=== PATIENT | male | born 1960 | race Caucasian/White ===

== ENCOUNTER 2020-04-24 10:20 | Inpatient (IN) | payer BC, OTHER ==
[~2020-04-24] VITALS: Ht 179.8 cm; Wt 85.1 kg
[2020-04-24] VITALS (7 sets, daily range): BP systolic 143–153; BP diastolic 78–87
--- NOTE | 2020-04-24 13:15 | NUR ---
ALEXANDREA ALVARADO admitted to room 430-1, with an admitting diagnosis of COVID 19, on 04/24/20 from [facility] via EMS, accompanied by EMS STAFF. ALEXANDREA ALVARADO introduced to surroundings, call light, bed controls, phone, TV, temperature control, lights, meal times, smoking policy, visitor policy, side rail policy, bathrooms and showers. Patient Rights given to patient in the handbook. ALEXANDREA ALVARADO verbalizes understanding that [facility] is not responsible for the loss or damage to any personal effects or valuables that are kept in the patients posession during their hospitalization. ALEXANDREA ALVARADO verbalizes understanding of Interdisciplinary Patient Education. Patient and/or family were informed about the Rapid Response Team and its purpose.
--- NOTE | 2020-04-24 13:48 | NUR ---
GREGORY NOTIFIED OF PT ARRIVAL. NO NEW ORDERS AT THIS TIME.
--- NOTE | 2020-04-24 13:49 | NUR ---
CALL TO [facility]. SPOKE TO MITA IN ED. REQUESTED THAT PT FULL CHART BE FAXED ANGEL.
[2020-04-24] MEDS ORDERED: ONDANSETRON 4 MG/2 ML (SDV) Z0FRAN IV PRN (14:15)
[2020-04-24] MEDS ORDERED: NS IV 500 ML 500 ML IV SCH (14:17)
[2020-04-24] MEDS ORDERED: diphenhydrAMINE 50 MG/ML INJ (BENADRYL) IVP PRN (14:30)
[2020-04-24] MEDS ORDERED: REMDESIVIR INJ (NON-FORMULARY) 200 MG in NS (IVPB) 210 ML IV NR (14:30)
--- NOTE | 2020-04-24 14:41 | History & Physical-Hospitalist ---
History of Present Illness HPI/Chief Complaint Pt is a 59yoCM who was admitted due to hypoxia from COVID19. He states his symptoms started about 1 week ago and he was tested for COVID19 at [place] and was called and told he was positive. He has continued to cough and not feel well with increasing shortness of breath prompting him to seek evaluation in the ER. He was found to be hypoxic there and CTA was done and was negative. He was transferred here for further evaluation. He states the cough is his biggest symptom but he is also has lost his taste. Source: patient Exam Limitations: no limitations Date Seen 04/24/20 Time Seen by a Provider: 14:23 Attending Physician Nicholas Cardona MD PCP Referring Physician Date of Admission Apr 24, 2020 at 13:04 Home Medications & Allergies Home Medications Reviewed patient Home Medication Reconciliation performed by pharmacy medication reconciliations chemical waste management technician and/or nursing. Patients Allergies have been reviewed. Allergies Allergies Coded Allergies Penicillins (Verified Allergy, Mild, 04/24/20) Past Eqyhxql-Zidkso-Znytfh Hx Past Med/Social Hx: Reviewed Nursing Past Med/Soc Hx Patient Social History Alcohol Use: Occasionally Uses Alcohol Beverage of Choice: Beer Recreational Drug Use: No Smoking Status: Never a Smoker Physical Abuse Screen: No Sexual Abuse: No Recent Foreign Travel: No Contact w/other who traveled: No Recent Infectious Disease Expo: Yes Family History Reviewed Nursing Family Hx No Pertinent Family Hx Review of Systems Constitutional: No chills, No fever Respiratory: cough, dyspnea on exertion; No hemoptysis, No phlegm; short of breath; No wheezing Cardiovascular: No chest pain, No edema, No palpitations Gastrointestinal: loss of appetite (no taste); No nausea, No vomiting Genitourinary: no symptoms reported Musculoskeletal: no symptoms reported Skin: no symptoms reported Psychiatric/Neurological: No Symptoms Reported Physical Exam Physical Exam Vital Signs Vital Signs - First Documented 04/24/20 13:17 Temp 36.6 Pulse 79 Resp 24 B/P (MAP) 152/87 Pulse Ox 93 O2 Delivery Nasal Cannula O2 Flow Rate 3.00 Capillary Refill : Height, Weight, BMI Height: '" Weight: lbs. oz. kg; 27.34 BMI Method: General Appearance: No Apparent Distress, WD/WN HEENT: PERRL/EOMI, Moist Mucous Membranes; No Scleral Icterus (L), No Scleral Icterus (R) Neck: Normal Inspection, Supple Respiratory: Lungs Clear, No Accessory Muscle Use, Other (coughing multiple times through exam, on oxygen) Cardiovascular: Regular Rate, Rhythm, No JVD, No Murmur Gastrointestinal: Normal Bowel Sounds, Non Tender, Soft Extremity: Normal Capillary Refill, No Calf Tenderness, No Pedal Edema Neurologic/Psychiatric: Alert, Oriented x3, Normal Mood/Affect Skin: Normal Color, Warm/Dry Results Results/Procedures Labs Patient resulted labs reviewed. Assessment/Plan Admission Diagnosis Acute hypoxic respiratory failure Admission Status: Inpatient Order (span 2 midnights) Reason for Inpatient Admission: see below Assessment and Plan Acute hypoxic respiratory failure COVID19 Diagnosed with COVID on 04/19 Symptom onset ~1 week Decadron Oxygen supplementation Discussed risks and benefits of both Remdesivir and Plasma and their EUA status, patient agreeable to experimental treatment, will order Lovenox IS DVT ppx: Lovenox Clinical Quality Measures DVT/VTE Risk/Contraindication: Risk Factor Score Per Nursin RFS Level Per Nursing on Admit: 2=Moderate NICHOLAS CARDONA MD Apr 24, 2020 14:40
[2020-04-24] MEDS ORDERED: ATOR10TA66 PO (15:03)
[2020-04-24] MEDS ORDERED: ALBU18HF2 INH (15:03)
[2020-04-24] MEDS ORDERED: AMLO10TA7 PO (15:03)
[2020-04-24] MEDS ORDERED: ASPI-789 PO (15:03)
--- NOTE | 2020-04-24 15:04 | NUR ---
SPOKE WITH PT (I CALLED HIS ROOM PHONE) AND WENT THRU THE EXT MED HISTORY TO COMPLETE THE MED REC 04-20-2020 AZITHROMYCIN 500MG #3 HOWEVER THE PT HAS COMPLETED THIS THERAPY 04-20-2020 TUSSIONEX #70ML/7 DAY SUPPLY- PT SAID HE IS OUT OF THIS MEDICATION OTC MEDS: JASMEET
[2020-04-24] MEDS: guaiFENesin SYRUP 100 MG/5 ML 10 ML (ROBITUSSIN SF) PO PRN ×2 (15:06→19:44)
[2020-04-24] MEDS: BENZONATATE 100 MG (TESSALON) CAPSULE PO PRN (15:06)
[2020-04-24] MEDS: ENOXAPARIN 40 MG/0.4 ML (LOVENOX) SYR SC SCH (15:06)
[2020-04-24] MEDS: RT-ALBUTEROL INHALER HFA (VENTOLIN HFA) 18 GM IH PRN ×2 (16:19→17:45)
[2020-04-24] MEDS: RT-ALBUTEROL INHALER HFA (VENTOLIN HFA) 18 GM IH SCH ×2 (18:29→22:44)
[2020-04-25 00:51] VITALS: BP 141/71
[2020-04-25] MEDS: IBUPROFEN TABLET 200 MG TAB PO PRN (02:44)
[2020-04-25] MEDS: RT-ALBUTEROL INHALER HFA (VENTOLIN HFA) 18 GM IH SCH ×6 (02:46→22:13)
[2020-04-25 04:30] VITALS: BP 140/78
[2020-04-25 05:05] LABS: ALANINE AMINOTRANSFERASE 48 U/L (0-55); ALBUMIN 3.4 GM/DL (3.2-4.5); ALKALINE PHOSPHATASE 49 U/L (40-136); BILIRUBIN,TOTAL 0.6 MG/DL (0.1-1.0); BUN/CREATININE RATIO 23; CALCIUM 8.3 MG/DL (8.5-10.1); CARBON DIOXIDE 20 MMOL/L (21-32); CHLORIDE 103 MMOL/L (98-107); CREATININE SERUM 0.79 MG/DL (0.60-1.30); GFR ESTIMATED > 60; GLUCOSE 121 MG/DL (70-105); POTASSIUM 3.5 MMOL/L (3.6-5.0); SODIUM 138 MMOL/L (135-145); TOTAL PROTEIN 6.3 GM/DL (6.4-8.2)
[2020-04-25 07:51] VITALS: BP 155/85
[2020-04-25] MEDS: guaiFENesin SYRUP 100 MG/5 ML 10 ML (ROBITUSSIN SF) PO PRN ×3 (09:09→20:16)
[2020-04-25] MEDS: BENZONATATE 100 MG (TESSALON) CAPSULE PO PRN ×2 (09:09→18:17)
[2020-04-25] MEDS: dexAMETHasone 6 MG TAB (DECADRON) PO SCH (09:09)
--- NOTE | 2020-04-25 09:15 | NUR ---
THIS RN AT BEDSIDE AT THIS TIME. PT ASKED TO STAND AT SIDE OF BED SO THIS NURSE COULD STRAIGHTEN LINENS. UPON STANDING PT O2 SATS DROP TO 79% WITHIN SECONDS. THIS RN HELPS PT BACK TO BED. 02 INCREASED FROM 3.05 TO 5L AND IS PLACED IN PT'S MOUTH DUE TO MOUTH BREATHING. STAFF ASSIST REQUESTED FOR A HIGH FLOW NASAL CANULA. PT PLACED ON HF CANULA AND 02 INCREASED TO 8L. PT IS ABLE TO RECOVER TO 90% AFTER 3 MINUTES. GREGORY CALLED @ [phone] GREGORY AT BEDSIDE AT THIS TIME ASSESSING PT.
[2020-04-25] MEDS: LACTATED RINGERS 1,000 ML IV SCH ×2 (09:40→21:20)
[2020-04-25] MEDS: PROMETHAZINE/ CODEINE SYRUP 5 ML UDC PO PRN ×3 (09:40→22:37)
[2020-04-25] MEDS ORDERED: LACTATED RINGERS 1,000 ML IV ONE (09:40)
--- NOTE | 2020-04-25 10:01 | Progress Note - Hospitalist ---
Subjective HPI/CC On Admission Date Seen by Provider: Apr 25, 2020 Time Seen by Provider: 09:55 Pt is a 59yoCM who was admitted due to hypoxia from COVID19. He states his symptoms started about 1 week ago and he was tested for COVID19 at [place] and was called and told he was positive. He has continued to cough and not feel well with increasing shortness of breath prompting him to seek evaluation in the ER. He was found to be hypoxic there and CTA was done and was negative. He was transferred here for further evaluation. He states the cough is his biggest symptom but he is also has lost his taste. Subjective/Events-last exam Pt reports doing ok. Desatted this morning when he got up to go to the bathroom and had a slow recovery. Objective Exam Vital Signs Vital Signs Date Time Temp Pulse Resp B/P (MAP) Pulse Ox O2 Delivery O2 Flow Rate FiO2 04/25/20 07:58 90 Nasal Cannula 3.00 04/25/20 07:51 36.6 84 24 155/85 (108) Capillary Refill : Less Than 3 Seconds General Appearance: No Apparent Distress, WD/WN Respiratory: Decreased Breath Sounds Cardiovascular: Regular Rate, Rhythm, No Murmur Gastrointestinal: Normal Bowel Sounds, Non Tender, Soft Neurologic/Psychiatric: Alert, Oriented x3 Results/Procedures Lab Laboratory Tests 04/25/20 04:24 Patient resulted labs reviewed. Assessment/Plan Assessment and Plan Assess & Plan/Chief Complaint Acute hypoxic respiratory failure COVID19 Diagnosed with COVID on 04/19 Symptom onset ~1 week Decadron Continue Remdesivir Received convalescent plasma last night Lovenox IS Increasing oxygen requirement, Dr Crawford consulted, appreciate recs DVT ppx: Lovenox Clinical Quality Measures DVT/VTE Risk/Contraindication: Risk Factor Score Per Nursin RFS Level Per Nursing on Admit: 2=Moderate NICHOLAS JENKINS MD Apr 25, 2020 10:01
--- NOTE | 2020-04-25 10:28 | Pulmonary Consultation ---
History of Present Illness History of Present Illness Date Seen by Provider: Apr 25, 2020 Time Seen by Provider: 10:25 Date of Admission History of Present Illness 59yo with known dx of COVID 19 admitted secondary to worsening symptoms. Pt tested positive 1 wk ago at [facility]. Upon ED admission he was found to be hypoxic. Pt is admitted to 4th floor. I am consulted secondary to worsening hypoxia and SOB. Allergies and Home Medications Allergies Coded Allergies: Penicillins (Verified Allergy, Mild, 04/24/20) Home Medications Albuterol Sulfate 18 Gm Hfa.aer.ad, 2 INH INH Q6H PRN for SHORTNESS OF BREATH, (Reported) Amlodipine Besylate 10 Mg Tablet, 10 MG PO DAILY, (Reported) Aspirin/Acetaminophen/Caffeine 1 Each Tablet, 2 EACH PO Q6-8HR PRN for Headache, (Reported) Atorvastatin Calcium 10 Mg Tablet, 10 MG PO DAILY, (Reported) Past Hlltxnc-Ihccss-Dfziww Hx Past Med/Social Hx: Reviewed Nursing Past Med/Soc Hx Patient Social History Alcohol Use: Occasionally Uses Alcohol Beverage of Choice: Beer Recreational Drug Use: No Smoking Status: Never a Smoker Recent Foreign Travel: No Contact w/Someone Who Travel: No Recent Infectious Disease Expo: Yes Family Medical History Reviewed Nursing Family Hx No Pertinent Family Hx Sepsis Event Evaluation Height, Weight, BMI Height: '" Weight: lbs. oz. kg; 27.34 BMI Method: Exam Exam Vital Signs Date Time Temp Pulse Resp B/P (MAP) Pulse Ox O2 Delivery O2 Flow Rate FiO2 04/25/20 07:58 90 Nasal Cannula 3.00 04/25/20 07:51 36.6 84 24 155/85 (108) 93 Nasal Cannula 3.00 04/25/20 04:30 36.5 79 28 140/78 (98) 90 Nasal Cannula 3.00 04/25/20 02:46 87 Nasal Cannula 3.00 04/25/20 00:51 36.6 84 22 141/71 (94) 90 Nasal Cannula 3.00 04/24/20 22:44 92 Nasal Cannula 3.00 04/24/20 20:30 Nasal Cannula 3.50 04/24/20 19:35 36.7 81 26 153/79 91 Nasal Cannula 3.00 04/24/20 19:23 36.7 81 26 153/79 (103) 91 Nasal Cannula 3.00 04/24/20 19:01 91 Nasal Cannula 3.00 04/24/20 17:44 36.8 86 24 146/78 91 Nasal Cannula 3.50 04/24/20 17:28 36.7 89 30 143/78 92 Nasal Cannula 3.50 04/24/20 16:18 92 Nasal Cannula 3.00 04/24/20 15:16 36.9 74 30 151/80 (103) 90 Nasal Cannula 3.00 04/24/20 13:55 93 Nasal Cannula 3.00 04/24/20 13:50 36.6 79 24 152/87 (108) 93 Nasal Cannula 3.00 3.00 04/24/20 13:17 36.6 79 24 152/87 93 Nasal Cannula 3.00 I & O 04/25/20 07:00 Intake Total 1974 ml Balance 1974 ml Height & Weight Height: '" Weight: lbs. oz. kg; 27.34 BMI Method: General Appearance: No Apparent Distress, WD/WN HEENT: PERRL/EOMI, Moist Mucous Membranes; No Scleral Icterus (L), No Scleral Icterus (R) Neck: Normal Inspection, Supple Respiratory: Decreased Breath Sounds Cardiovascular: Regular Rate, Rhythm, No Murmur Capillary Refill: Less Than 3 Seconds Extremity: Normal Capillary Refill, No Calf Tenderness, No Pedal Edema Neurologic/Psychiatric: Alert, Oriented x3 Skin: Normal Color, Warm/Dry Results Lab Laboratory Tests 04/25/20 04:24 Assessment/Plan Assessment/Plan COVID19- Dx: 04/19 Decadron Continue Remdesivir S/p convalescent plasma Oxygen check CBC, BNP and PCT CXR reviewed -Awake proning DVT ppx: Markx BELTRAN GÓMEZ DO Apr 25, 2020 10:28
--- NOTE | 2020-04-25 10:33 | Diagnostic Imaging Report ---
INDICATION: Cough and Covid positive. TIME OF EXAM: 9:58 AM. COMPARISON: No prior studies are available for comparison. FINDINGS: The heart size is normal. There are some patchy airspace infiltrates in both mid and lower lung negrete, consistent with pneumonia. The central vascularity is prominent. No effusion or pneumothorax is identified. IMPRESSION: Patchy bilateral airspace pulmonary infiltrates, consistent with pneumonia. The report was faxed to Antony Hankins in Infection Control by alberto@10:32 AM. Dictated by: Dictated on workstation # [id number]
[2020-04-25 11:02] LABS: BASOPHILS % (AUTO) 0 % (0-10); EOSINOPHILS % (AUTO) 0 % (0-10); HEMATOCRIT 44 % (40-54); LYMPHOCYTES # (AUTO) 0.4 10^3/uL (1.0-4.0); LYMPHOCYTES % (AUTO) 3 % (12-44); MEAN CORPUSCULAR HEMOGLOBIN 31 pg (25-34); MEAN CORPUSCULAR HGB CONC 34 g/dL (32-36); MEAN CORPUSCULAR VOLUME 92 fL (80-99); MONOCYTES # (AUTO) 0.5 10^3/uL (0.0-1.0); MONOCYTES % (AUTO) 4 % (0-12); NEUTROPHILS # (AUTO) 10.8 10^3/uL (1.8-7.8); NEUTROPHILS % (AUTO) 92 % (42-75); PLATELET COUNT 230 10^3/uL (130-400); WHITE BLOOD COUNT 11.7 10^3/uL (4.3-11.0)
[2020-04-25 11:19] LABS: BAND NEUTROPHILS 5 %; BASOPHILS % (MANUAL) 0 %; EOSINOPHILS % (MANUAL) 0 %; LYMPHOCYTES % (MANUAL) 4 %; MONOCYTES % (MANUAL) 3 %; NEUTROPHILS % (MANUAL) 88 %; RBC MORPH NORMAL
[2020-04-25 12:00] VITALS: BP 132/73
[2020-04-25] MEDS: REMDESIVIR INJ (NON-FORMULARY) 100 MG in NS (IVPB) 230 ML IV SCH (13:57)
[2020-04-25] MEDS: morphine INJ 4 MG/ML 1 ML (VIAL/SYRINGE) IVP PRN (13:57)
[2020-04-25] MEDS ORDERED: cefTRIAXone FOR IV USE 1,000 MG in WATER (STERILE) FOR INJECTION 10 ML IV SCH (14:00)
[2020-04-25] MEDS: ENOXAPARIN 40 MG/0.4 ML (LOVENOX) SYR SC SCH (14:13)
[2020-04-25 17:00] VITALS: BP 148/76
[2020-04-25] MEDS: cefTRIAXone FOR IV USE 1,000 MG in WATER (STERILE) FOR INJECTION 10 ML IV SCH (18:17)
[2020-04-25] MEDS ORDERED: APAP 300 MG/CODEINE 30 MG (TYLENOL #3) TAB PO PRN (19:15)
[2020-04-25 20:00] VITALS: BP 180/91
--- NOTE | 2020-04-25 20:15 | NUR ---
Entered Pt room to assess and record vital signs. Pt requested to sit up on side of bed. Upon position change Pt began to cough vigorously. PT immediately desat into the 70s and was taking along time to recover. RT in room a few minutes later, RT Norah recommended Pt be placed on vapotherm. Pt room change to 401 for negative pressure to receive vapotherm therapy. RT [place] set Pt up on Vapotherm. Dr. Stevenson notified and agreed with vapotherm therapy, no further orders at this time, will continue to monitor.
[2020-04-25] MEDS: ADVAIR HFA 115/21 MCG INHALER 8 GM IH SCH (20:16)
[2020-04-25] MEDS: ACETAMINOPHEN 325 MG TABLET PO PRN (21:26)
--- NOTE | 2020-04-25 22:30 | NUR ---
Family notified of Pt room change, and that Pt is now receiving O2 therapy via vapotherm. Family verbalized understanding. Patient's status has improved, less coughing and SOB noted, SPO2 98-99% on 35%, 70FIO2 vapotherm settings. Will continue to monitor Pt and collaborate with RT.
[2020-04-26] VITALS (15 sets, daily range): BP systolic 129–150; BP diastolic 72–99
[2020-04-26] MEDS: RT-ALBUTEROL INHALER HFA (VENTOLIN HFA) 18 GM IH SCH ×6 (02:30→20:59)
[2020-04-26 06:02] LABS: HEMOGLOBIN 15.4 g/dL (13.3-17.7); MEAN PLATELET VOLUME 10.7 fL (9.0-12.2); WHITE BLOOD COUNT 14.6 10^3/uL (4.3-11.0)
[2020-04-26 06:07] LABS: ALBUMIN 3.6 GM/DL (3.2-4.5); CHLORIDE 104 MMOL/L (98-107); POTASSIUM 3.8 MMOL/L (3.6-5.0); SODIUM 140 MMOL/L (135-145)
[2020-04-26 06:08] LABS: CALCIUM 8.6 MG/DL (8.5-10.1)
[2020-04-26 06:09] LABS: GLUCOSE 116 MG/DL (70-105); TOTAL PROTEIN 6.7 GM/DL (6.4-8.2)
[2020-04-26 06:10] LABS: CARBON DIOXIDE 22 MMOL/L (21-32)
[2020-04-26 06:11] LABS: BILIRUBIN,TOTAL 0.8 MG/DL (0.1-1.0)
[2020-04-26 06:12] LABS: ALKALINE PHOSPHATASE 66 U/L (40-136)
[2020-04-26 06:13] LABS: CREATININE SERUM 0.82 MG/DL (0.60-1.30); GFR ESTIMATED > 60
[2020-04-26 06:14] LABS: BUN/CREATININE RATIO 22
[2020-04-26 06:16] LABS: ALANINE AMINOTRANSFERASE 50 U/L (0-55)
--- NOTE | 2020-04-26 07:16 | Pulmonary Progress Note ---
Subjective Time Seen by a Provider: 07:15 Subjective/Events-last exam pt is requiring more oxygen. Sepsis Event Evaluation Height, Weight, BMI Height: '" Weight: lbs. oz. kg; 27.34 BMI Method: Exam Exam Vital Signs Date Time Temp Pulse Resp B/P (MAP) Pulse Ox O2 Delivery O2 Flow Rate FiO2 04/26/20 04:00 37.3 78 28 148/77 (100) 96 Vapotherm 35.00 60.00 04/26/20 02:30 98 Vapotherm 4.00 70 04/26/20 00:35 36.9 71 20 140/79 (99) 98 Vapotherm 35.00 70.00 04/25/20 22:17 95 Vapotherm 4.00 70 04/25/20 21:45 95 Vapotherm 4.00 70 04/25/20 21:22 76 Nasal Cannula 3.50 04/25/20 21:00 Nasal Cannula 4.50 04/25/20 20:00 36.1 73 46 180/91 (120) 92 Nasal Cannula 4.50 04/25/20 17:00 35.8 87 24 148/76 (100) 92 Nasal Cannula 3.00 04/25/20 15:23 91 Nasal Cannula 3.50 04/25/20 12:00 35.5 91 22 132/73 (92) 93 Nasal Cannula 3.00 04/25/20 11:45 92 Nasal Cannula 3.50 04/25/20 08:00 Nasal Cannula 3.50 04/25/20 07:58 90 Nasal Cannula 3.00 04/25/20 07:51 36.6 84 24 155/85 (108) 93 Nasal Cannula 3.00 I & O 04/26/20 07:00 Intake Total 1495 ml Output Total 750 ml Balance 745 ml Height & Weight Height: '" Weight: lbs. oz. kg; 27.34 BMI Method: General Appearance: No Apparent Distress, WD/WN HEENT: PERRL/EOMI, Moist Mucous Membranes; No Scleral Icterus (L), No Scleral Icterus (R) Neck: Normal Inspection, Supple Respiratory: Decreased Breath Sounds Cardiovascular: Regular Rate, Rhythm, No Murmur Capillary Refill: Less Than 3 Seconds Extremity: Normal Capillary Refill, No Calf Tenderness, No Pedal Edema Neurologic/Psychiatric: Alert, Oriented x3 Skin: Normal Color, Warm/Dry Results Lab Laboratory Tests 04/25/20 04:24 04/26/20 05:41 Assessment/Plan Assessment/Plan COVID19- Dx: 04/19 Decadron Continue Remdesivir S/p convalescent plasma Oxygen CXR reviewed -Awake proning Pneumonia -Continue Rocephin DVT ppx: Markx BELTRAN GÓMEZ DO Apr 26, 2020 07:16
[2020-04-26] MEDS: ADVAIR HFA 115/21 MCG INHALER 8 GM IH SCH ×2 (07:42→21:00)
[2020-04-26] MEDS: dexAMETHasone 6 MG TAB (DECADRON) PO SCH (09:15)
[2020-04-26] MEDS: guaiFENesin SYRUP 100 MG/5 ML 10 ML (ROBITUSSIN SF) PO PRN ×4 (09:20→23:29)
--- NOTE | 2020-04-26 10:07 | Progress Note - Hospitalist ---
Subjective HPI/CC On Admission Date Seen by Provider: Apr 26, 2020 Time Seen by Provider: 10:04 Pt is a 59yoCM who was admitted due to hypoxia from COVID19. He states his symptoms started about 1 week ago and he was tested for COVID19 at [place] and was called and told he was positive. He has continued to cough and not feel well with increasing shortness of breath prompting him to seek evaluation in the ER. He was found to be hypoxic there and CTA was done and was negative. He was transferred here for further evaluation. He states the cough is his biggest symptom but he is also has lost his taste. Subjective/Events-last exam Pt reports being tired. Was short of breath overnight with coughing spell. Requ ired vapotherm. On day 7 of symptoms. Discussed plan to transfer to ICU for monitoring and potential for worsening given within the window. Objective Exam Vital Signs Vital Signs Date Time Temp Pulse Resp B/P (MAP) Pulse Ox O2 Delivery O2 Flow Rate FiO2 04/26/20 09:24 88 Vapotherm 35.00 60 04/26/20 07:50 36.9 82 24 147/83 (104) Capillary Refill : Less Than 3 Seconds General Appearance: WD/WN, Other (ill appearing) Respiratory: No Accessory Muscle Use, Decreased Breath Sounds; No Wheezing; Other (on vapotherm) Cardiovascular: Regular Rate, Rhythm, No Murmur Gastrointestinal: Normal Bowel Sounds, Soft Neurologic/Psychiatric: Alert, Oriented x3 Results/Procedures Lab Laboratory Tests 04/26/20 05:41 Patient resulted labs reviewed. Assessment/Plan Assessment and Plan Assess & Plan/Chief Complaint Acute hypoxic respiratory failure COVID19 Diagnosed with COVID on 04/19 Transfer to ICU for increasing oxygen requirement and Vapotherm need Discussed with Dr Crawford who will take over rounds tomorrow Decadron Continue Remdesivir Received convalescent plasma Lovenox, increase to treatment dose Had negative CTA at outside ER IS Continue abx to cover for potential secondary bacterial pna DVT ppx: Lovenox as above Diagnosis/Problems Diagnosis/Problems (1) Acute respiratory failure (2) COVID-19 Clinical Quality Measures DVT/VTE Risk/Contraindication: Risk Factor Score Per Nursin RFS Level Per Nursing on Admit: 2=Moderate NICHOLAS JENKINS MD Apr 26, 2020 10:07
--- NOTE | 2020-04-26 10:30 | NUR ---
PT TRANSFERRED TO ICU-2. PT TOLERATED TRANSFER WELL. REPORT GIVEN TO ALBER BARBOSA AT THIS TIME.
[2020-04-26] MEDS: ENOXAPARIN 40 MG/0.4 ML (LOVENOX) SYR SC SCH ×2 (11:01→19:25)
[2020-04-26] MEDS: BENZONATATE 100 MG (TESSALON) CAPSULE PO PRN ×2 (11:01→19:25)
[2020-04-26] MEDS: ACETAMINOPHEN 325 MG TABLET PO PRN (11:02)
[2020-04-26] MEDS ORDERED: FUROSEMIDE 40 MG/4 ML INJ (LASIX) ONE (11:09)
[2020-04-26] MEDS ORDERED: FUROSEMIDE 40 MG/4 ML INJ (LASIX) IVP ONE (11:15)
--- NOTE | 2020-04-26 11:15 | NUR ---
DR GÓMEZ NOTIFIED OF PT'S VAPOTHERM SETTING 40 L /100%, ALSO NOTIFIED OF PT'S AVERAGE SA02 91-92%, PT NOTED TO BECOME MORE HYPOXIC WITH ACTIVITY. NEW ORDERS RECEIVED.
[2020-04-26] MEDS: POTASSIUM CL 10MEQ/50ML IVPB 50 ML IV SCH ×4 (11:20→15:10)
[2020-04-26 11:40] LABS: ABG OXYGEN SATURATION 93 % (94-100); ABG PCO2 34 MMHG (35-45); ABG PH 7.49 (7.37-7.43); ABG PO2 73 MMHG (79-93); ABG TCO2 26.2 MMOL/L (21.0-31.0)
[2020-04-26 11:41] LABS: ALLENS TEST YES-POS; INSPIRED O2 100%; PATIENT TEMP 37.4; VENTILATOR NO
--- NOTE | 2020-04-26 11:52 | Diagnostic Imaging Report ---
CLINICAL INDICATION: COVID-19 positive. Patient with shortness of breath. EXAM: Portable chest x-ray upright view. COMPARISONS: Portable chest x-ray dated 04/25/2020. FINDINGS: Lungs/pleura: There is no significant change to the patchy airspace infiltrates bilaterally (right side more than the left). There is no pneumothorax. There is no pleural effusion. Mediastinum: Unremarkable. Pulmonary vasculature: Unremarkable. Heart: Heart size is upper limits of normal for portable projection.. Bones/extrathoracic soft tissue: Unremarkable. IMPRESSION: Stable bilateral lung infiltrates (right side more than the left). Dictated by: Dictated on workstation # [id number]
[2020-04-26 13:25] LABS: BILIRUBIN,URINE NEGATIVE (NEGATIVE); CLARITY,URINE CLEAR; COLOR,URINE YELLOW; GLUCOSE, URINE (UA) NEGATIVE (NEGATIVE); KETONES,URINE NEGATIVE (NEGATIVE); LEUKOCYTE ESTERASE ,URINE NEGATIVE (NEGATIVE); NITRITE,URINE NEGATIVE (NEGATIVE); PH,URINE 6.5 (5-9); PROTEIN,URINE NEGATIVE (NEGATIVE)
[2020-04-26 13:39] LABS: BACTERIA,URINE TRACE /HPF; RBC,URINE 0-2 /HPF; SQUAMOUS EPITHELIAL CELL,UR 0-2 /HPF
[2020-04-26] MEDS: REMDESIVIR INJ (NON-FORMULARY) 100 MG in NS (IVPB) 230 ML IV SCH (13:53)
[2020-04-26] MEDS: IBUPROFEN TABLET 200 MG TAB PO PRN ×2 (14:06→21:25)
[2020-04-26] MEDS ORDERED: CHLORASEPTIC SPRAY 177 ML LIQUID MC PRN (16:00)
[2020-04-26] MEDS ORDERED: cefTRIAXone 1,000 MG IV (ROCEPHIN) VIAL ONE (16:27)
[2020-04-26] MEDS ORDERED: WATER (STERILE) FOR INJECTION 10 ML ONE (16:27)
[2020-04-26] MEDS: cefTRIAXone FOR IV USE 1,000 MG in WATER (STERILE) FOR INJECTION 10 ML IV SCH (17:01)
[2020-04-26] MEDS: diphenhydrAMINE 25 MG TAB (BENADRYL) PO PRN (21:21)
[2020-04-27] VITALS (31 sets, daily range): BP systolic 122–159; BP diastolic 69–102
[2020-04-27] MEDS: LACTATED RINGERS 1,000 ML IV SCH (00:53)
[2020-04-27] MEDS: RT-ALBUTEROL INHALER HFA (VENTOLIN HFA) 18 GM IH SCH ×6 (02:16→21:35)
[2020-04-27 03:25] LABS: CHLORIDE 100 MMOL/L (98-107); POTASSIUM 4.6 MMOL/L (3.6-5.0); SODIUM 138 MMOL/L (135-145)
[2020-04-27 03:26] LABS: CALCIUM 8.5 MG/DL (8.5-10.1)
[2020-04-27 03:27] LABS: GLUCOSE 122 MG/DL (70-105)
[2020-04-27 03:29] LABS: CARBON DIOXIDE 25 MMOL/L (21-32)
[2020-04-27 03:31] LABS: CREATININE SERUM 0.82 MG/DL (0.60-1.30); GFR ESTIMATED > 60; PHOSPHORUS 3.3 MG/DL (2.3-4.7)
[2020-04-27] MEDS: POTASSIUM CL 10MEQ/50ML IVPB 50 ML IV SCH (03:31)
[2020-04-27 03:32] LABS: BUN/CREATININE RATIO 22
[2020-04-27] MEDS: KCL 20 MEQ TAB (K-DUR) PO SCH (03:32)
[2020-04-27 03:33] LABS: BASOPHILS % (AUTO) 0 % (0-10); EOSINOPHILS % (AUTO) 0 % (0-10); HEMATOCRIT 47 % (40-54); HEMOGLOBIN 15.5 g/dL (13.3-17.7); LYMPHOCYTES # (AUTO) 0.4 10^3/uL (1.0-4.0); LYMPHOCYTES % (AUTO) 3 % (12-44); MEAN CORPUSCULAR HEMOGLOBIN 31 pg (25-34); MEAN CORPUSCULAR HGB CONC 33 g/dL (32-36); MEAN CORPUSCULAR VOLUME 92 fL (80-99); MEAN PLATELET VOLUME 10.8 fL (9.0-12.2); MONOCYTES # (AUTO) 0.3 10^3/uL (0.0-1.0); MONOCYTES % (AUTO) 2 % (0-12); NEUTROPHILS # (AUTO) 14.3 10^3/uL (1.8-7.8); NEUTROPHILS % (AUTO) 95 % (42-75); PLATELET COUNT 233 10^3/uL (130-400); WHITE BLOOD COUNT 15.1 10^3/uL (4.3-11.0)
[2020-04-27] MEDS: MAGNESIUM 1 GM/100 ML IVPB 100 ML IV SCH (03:39)
[2020-04-27] MEDS: BENZONATATE 100 MG (TESSALON) CAPSULE PO PRN (06:03)
[2020-04-27] MEDS: PROMETHAZINE/ CODEINE SYRUP 5 ML UDC PO PRN ×2 (06:18→17:07)
--- NOTE | 2020-04-27 07:18 | Pulmonary Progress Note ---
Subjective Time Seen by a Provider: 07:13 Subjective/Events-last exam PT is requiring 100% vapotherm Sepsis Event Evaluation Height, Weight, BMI Height: '" Weight: lbs. oz. kg; 27.34 BMI Method: Exam Exam Vital Signs Date Time Temp Pulse Resp B/P (MAP) Pulse Ox O2 Delivery O2 Flow Rate FiO2 04/27/20 06:06 Vapotherm 40.00 100.00 04/27/20 06:00 81 35 133/69 (90) 95 Vapotherm 30.00 75.00 04/27/20 05:00 82 30 137/96 (110) 94 Vapotherm 30.00 75.00 04/27/20 04:00 67 26 148/87 (107) 98 Vapotherm 30.00 75.00 04/27/20 03:48 Vapotherm 35.00 75.00 04/27/20 03:39 37.0 04/27/20 03:12 91 Vapotherm 75.00 30 04/27/20 03:00 85 32 148/96 (113) 99 Vapotherm 30.00 75.00 04/27/20 02:25 Vapotherm 30.00 75.00 04/27/20 02:16 94 Vapotherm 35.00 80 04/27/20 02:00 73 27 136/85 (102) 99 Vapotherm 35.00 80.00 04/27/20 01:00 86 23 146/95 (112) 96 Vapotherm 35.00 80.00 04/27/20 01:00 93 04/27/20 00:00 68 22 144/102 (116) 97 Vapotherm 35.00 80.00 04/26/20 23:32 91 Vapotherm 80.00 35 04/26/20 23:30 37.0 04/26/20 23:00 72 16 143/88 (106) 93 Vapotherm 35.00 80.00 04/26/20 22:00 86 17 94 Vapotherm 35.00 80.00 04/26/20 21:10 Vapotherm 35.00 80.00 04/26/20 21:05 94 Vapotherm 35.00 80 04/26/20 21:01 89 Vapotherm 30.00 70 04/26/20 21:00 81 30 145/86 (105) 92 Vapotherm 30.00 100.00 04/26/20 20:00 76 26 145/89 (107) 95 Vapotherm 30.00 100.00 04/26/20 19:35 91 Vapotherm 70.00 30 04/26/20 19:23 37.1 Vapotherm 30.00 70.00 04/26/20 19:00 77 20 146/83 (104) 92 Vapotherm 30.00 100.00 04/26/20 19:00 80 04/26/20 18:00 78 28 137/88 (104) 90 Vapotherm 30.00 100.00 04/26/20 17:13 92 Vapotherm 30.00 70 04/26/20 17:00 80 22 132/99 (110) 95 Vapotherm 30.00 100.00 04/26/20 16:54 88 Vapotherm 100.00 30 04/26/20 16:00 81 23 132/87 (102) 97 Vapotherm 30.00 100.00 04/26/20 15:26 Vapotherm 30.00 100.00 04/26/20 15:00 80 27 129/78 (95) 96 Vapotherm 30.00 100.00 04/26/20 14:23 94 Vapotherm 30.00 100 04/26/20 14:00 74 30 150/86 (107) 92 Vapotherm 40.00 100.00 04/26/20 13:00 86 38 144/72 (96) 95 Vapotherm 40.00 100.00 04/26/20 12:59 89 04/26/20 12:00 84 34 136/99 (111) 96 Vapotherm 40.00 100.00 04/26/20 12:00 88 Vapotherm 100.00 40 04/26/20 11:45 37.2 04/26/20 11:02 37.4 04/26/20 11:00 85 21 144/84 (104) 92 Vapotherm 40.00 100.00 04/26/20 10:50 94 Vapotherm 40.00 100 04/26/20 10:36 84 04/26/20 09:24 88 Vapotherm 35.00 60 04/26/20 07:50 36.9 82 24 147/83 (104) 92 Vapotherm 04/26/20 07:42 92 Vapotherm 35.00 60 I & O 04/27/20 07:00 Intake Total 1040 ml Output Total 2550 ml Balance -1510 ml Height & Weight Height: '" Weight: lbs. oz. kg; 27.34 BMI Method: General Appearance: No Apparent Distress, WD/WN HEENT: PERRL/EOMI, Moist Mucous Membranes; No Scleral Icterus (L), No Scleral Icterus (R) Neck: Normal Inspection, Supple Respiratory: Decreased Breath Sounds Cardiovascular: Regular Rate, Rhythm, No Murmur Capillary Refill: Less Than 3 Seconds Extremity: Normal Capillary Refill, No Calf Tenderness, No Pedal Edema Neurologic/Psychiatric: Alert, Oriented x3 Skin: Normal Color, Warm/Dry Results Lab Laboratory Tests 04/26/20 05:41 04/27/20 03:00 Assessment/Plan Assessment/Plan COVID19- Dx: 04/19 -Transferred to ICU yesterday secondary to increasing oxygen requirements. Decadron-- Change to 20mg IV daily secondary to worsening hypoxia Repeat CXR Continue Remdesivir S/p convalescent plasma Oxygen CXR reviewed -Awake proning -Repeat Ddimer, BNP, and ferritin -Check bilateral LE US r/o DVT and increase Lovenox to theraputic dosing. -Give Lasix 40mg IV x 1 Pneumonia - worsening leukocytosis -Change Rocephin to Vanco and Zosyn -If MRSA swab returns negative will D/C Vanco -Siddiqui cultures are pending DVT ppx: Lovenox BELTRAN GÓMEZ DO Apr 27, 2020 07:18
[2020-04-27] MEDS ORDERED: PHARMACY TO DOSE IV SCH (07:30)
--- NOTE | 2020-04-27 07:43 | NUR ---
PTD VANCOMYCIN LABS: 88.4 KG, SCr 0.82, CrCl 105.2, BMI 27.3 PLAN: VANCOMYCIN LOADING DOSE 20MG/KG x 88.4 = 1768 MG ~ 1750 MG; VANCOMYCIN MAINT DOSE 15 MG/KG x 88.4 = 1326 ~ 1250 MG Q12H. VANCOMYCIN TROUGH DUE 04/28 @ 1900. IF TROUGH IS >20, HOLD DOSE & NOTIFY PHARMACY FOR ADJUSTMENTS.
[2020-04-27] MEDS: dexAMETHasone INJECTION 20 MG in NS (IVPB) 50 ML IV SCH (07:48)
[2020-04-27] MEDS: CEFEPIME INJECTION 1,000 MG in WATER (STERILE) FOR INJECTION 10 ML IV SCH ×4 (07:48→23:33)
[2020-04-27] MEDS: RT-ALBUTEROL INHALER HFA (VENTOLIN HFA) 18 GM IH PRN (07:49)
[2020-04-27] MEDS: ADVAIR HFA 115/21 MCG INHALER 8 GM IH SCH ×2 (07:49→18:44)
[2020-04-27] MEDS: ENOXAPARIN 40 MG/0.4 ML (LOVENOX) SYR SC SCH (07:49)
[2020-04-27] MEDS ORDERED: VANCOMYCIN 1,750 MG/NS 500 ML IVPB IV NR ×2 (08:00)
[2020-04-27] MEDS ORDERED: FUROSEMIDE 40 MG/4 ML INJ (LASIX) ONE (08:14)
--- NOTE | 2020-04-27 08:17 | NUR ---
THIS RN IN ROOM WITH PT. OXYGENATION NOT TRENDING ABOVE 83% VIA VAPOTHERM 40L/100%. THIS RN HAD PROFESSOR OF POULTRY SCIENCE CALL DR. GÓMEZ FOR ORDERS FOR BIPAP, RT NOTIFIED.
[2020-04-27] MEDS ORDERED: FUROSEMIDE 40 MG/4 ML INJ (LASIX) IVP NR (08:30)
[2020-04-27] MEDS ORDERED: ENOXAPARIN 40 MG/0.4 ML (LOVENOX) SYR SC NR (08:43)
[2020-04-27 09:50] LABS: ABG OXYGEN SATURATION 96 % (94-100); ABG PCO2 35 MMHG (35-45); ABG PO2 89 MMHG (79-93); ABG TCO2 28.3 MMOL/L (21.0-31.0)
[2020-04-27 09:53] LABS: ALLENS TEST YES-POS; INSPIRED O2 80%; PATIENT TEMP 36.8; VENTILATOR NO
--- NOTE | 2020-04-27 13:03 | Diagnostic Imaging Report ---
INDICATION: Shortness of breath, Covid positive patient. Bilateral lower extremity venous Doppler study was performed in the routine fashion with color flow Doppler and waveform analysis. FINDINGS: The common femoral veins, superficial femoral veins, popliteal veins and visualized portion of the tibial veins show normal compressibility and venous flow patterns. There is normal augmentation. IMPRESSION: No evidence of deep vein thrombosis in the major veins of both legs. Dictated by: Dictated on workstation # [id number]
[2020-04-27] MEDS: REMDESIVIR INJ (NON-FORMULARY) 100 MG in NS (IVPB) 230 ML IV SCH (14:51)
[2020-04-27] MEDS: ENOXAPARIN 80 MG/0.8 ML (LOVENOX) SYR SC SCH (19:40)
[2020-04-27] MEDS: VANCOMYCIN 1250 MG/NS 250 ML IVPB IV SCH ×2 (19:40)
[2020-04-28] VITALS (28 sets, daily range): BP systolic 113–141; BP diastolic 74–96
--- NOTE | 2020-04-28 00:06 | NUR ---
PT PRONE FROM APPROXIMATELY [phone]. AFTER ASSISTING PT TO BSC AND BACK HE STATES HE WOULD LIKE TO JUST STAY ON HIS BACK AT THIS TIME.
[2020-04-28] MEDS: RT-ALBUTEROL INHALER HFA (VENTOLIN HFA) 18 GM IH SCH ×6 (02:14→22:44)
[2020-04-28] MEDS: POTASSIUM CL 10MEQ/50ML IVPB 50 ML IV SCH (02:43)
[2020-04-28] MEDS: MAGNESIUM 1 GM/100 ML IVPB 100 ML IV SCH (02:43)
[2020-04-28] MEDS: KCL 20 MEQ TAB (K-DUR) PO SCH (02:43)
[2020-04-28 02:55] LABS: ABG BASE EXCESS 3.5 MMOL/L (-2.5-2.5); ABG OXYGEN SATURATION 90 % (94-100); ABG PCO2 38 MMHG (35-45); ABG PH 7.46 (7.37-7.43); ABG PO2 66 MMHG (79-93); ABG TCO2 28.3 MMOL/L (21.0-31.0); ALLENS TEST NEGATIVE; INSPIRED O2 40; PATIENT TEMP 37.1; VENTILATOR NO
[2020-04-28 04:40] LABS: ALBUMIN 3.2 GM/DL (3.2-4.5); CHLORIDE 102 MMOL/L (98-107); POTASSIUM 4.4 MMOL/L (3.6-5.0); SODIUM 138 MMOL/L (135-145)
[2020-04-28 04:41] LABS: CALCIUM 8.3 MG/DL (8.5-10.1)
[2020-04-28 04:42] LABS: GLUCOSE 115 MG/DL (70-105)
[2020-04-28 04:43] LABS: TOTAL PROTEIN 6.2 GM/DL (6.4-8.2)
[2020-04-28 04:44] LABS: BILIRUBIN,TOTAL 0.9 MG/DL (0.1-1.0); CARBON DIOXIDE 23 MMOL/L (21-32)
[2020-04-28 04:46] LABS: ALKALINE PHOSPHATASE 87 U/L (40-136); CREATININE SERUM 0.78 MG/DL (0.60-1.30); GFR ESTIMATED > 60; PHOSPHORUS 3.5 MG/DL (2.3-4.7)
[2020-04-28 04:47] LABS: BASOPHILS % (AUTO) 0 % (0-10); BUN/CREATININE RATIO 28; EOSINOPHILS % (AUTO) 0 % (0-10); HEMATOCRIT 54 % (40-54); HEMOGLOBIN 18.1 g/dL (13.3-17.7); LYMPHOCYTES # (AUTO) 0.3 10^3/uL (1.0-4.0); LYMPHOCYTES % (AUTO) 3 % (12-44); MEAN CORPUSCULAR HEMOGLOBIN 31 pg (25-34); MEAN CORPUSCULAR HGB CONC 34 g/dL (32-36); MEAN CORPUSCULAR VOLUME 92 fL (80-99); MEAN PLATELET VOLUME 11.3 fL (9.0-12.2); MONOCYTES # (AUTO) 0.2 10^3/uL (0.0-1.0); MONOCYTES % (AUTO) 2 % (0-12); NEUTROPHILS # (AUTO) 9.4 10^3/uL (1.8-7.8); NEUTROPHILS % (AUTO) 94 % (42-75); PLATELET COUNT 188 10^3/uL (130-400); WHITE BLOOD COUNT 9.9 10^3/uL (4.3-11.0)
[2020-04-28 04:49] LABS: ALANINE AMINOTRANSFERASE 45 U/L (0-55)
[2020-04-28] MEDS: CEFEPIME INJECTION 1,000 MG in WATER (STERILE) FOR INJECTION 10 ML IV SCH ×4 (05:11→23:16)
[2020-04-28 05:27] LABS: ANISOCYTOSIS SLIGHT; ATYPICAL LYMPHOCYTES 1 %; BAND NEUTROPHILS 4 %; HYPOCHROMASIA SLIGHT; LYMPHOCYTES % (MANUAL) 2 %; MONOCYTES % (MANUAL) 2 %; NEUTROPHILS % (MANUAL) 94 %
--- NOTE | 2020-04-28 05:30 | Pulmonary Progress Note ---
Subjective Time Seen by a Provider: 05:25 Subjective/Events-last exam Continue current treatment. Sepsis Event Evaluation Height, Weight, BMI Height: '" Weight: lbs. oz. kg; 27.34 BMI Method: Exam Exam Vital Signs Date Time Temp Pulse Resp B/P (MAP) Pulse Ox O2 Delivery O2 Flow Rate FiO2 04/28/20 05:00 80 22 137/90 (106) 96 NIV Bilevel 45.00 04/28/20 04:00 75 22 113/79 (90) 95 NIV Bilevel 45.00 04/28/20 03:00 75 24 133/74 (93) 93 NIV Bilevel 45.00 04/28/20 02:14 76 23 96 45.00 04/28/20 02:00 79 32 133/87 (102) 95 NIV Bilevel 45.00 04/28/20 01:35 NIV Bilevel 45.00 04/28/20 01:00 63 04/28/20 01:00 60 13 125/79 (94) 97 NIV Bilevel 50.00 04/28/20 00:56 NIV Bilevel 50.00 04/28/20 00:00 37.0 NIV Bilevel 55.00 04/28/20 00:00 62 30 130/81 (97) 95 NIV Bilevel 55.00 04/27/20 23:59 93 NIV Bilevel 55 04/27/20 23:00 59 24 122/79 (93) 99 NIV Bilevel 55.00 04/27/20 22:00 73 44 135/85 (102) 94 NIV Bilevel 55.00 04/27/20 21:35 71 33 96 60.00 04/27/20 21:00 72 34 133/85 (101) 93 NIV Bilevel 55.00 04/27/20 20:00 74 38 131/92 (105) 94 NIV Bilevel 55.00 04/27/20 20:00 92 NIV Bilevel 55 04/27/20 19:37 37.1 70 34 125/92 (103) 94 NIV Bilevel 55.00 04/27/20 19:00 71 04/27/20 19:00 67 32 125/92 (103) 96 NIV Bilevel 60.00 04/27/20 18:46 64 33 96 60.00 04/27/20 18:44 64 33 96 60.00 04/27/20 18:00 71 27 152/90 (110) 94 NIV Bilevel 60.00 04/27/20 17:30 NIV Bilevel 60.00 04/27/20 17:00 68 23 126/89 (101) NIV Bilevel 60.00 04/27/20 16:00 91 Vapotherm 40.00 100 04/27/20 16:00 64 139/83 (101) 95 NIV Bilevel 60.00 04/27/20 15:26 69 38 95 60.00 04/27/20 15:00 37.4 70 22 129/84 (99) 92 NIV Bilevel 60.00 04/27/20 14:00 67 24 129/88 (102) 96 NIV Bilevel 60.00 04/27/20 13:00 76 35 131/86 (101) 93 NIV Bilevel 60.00 04/27/20 13:00 81 04/27/20 12:00 91 NIV Bilevel 40.00 60 04/27/20 11:51 36.8 69 32 135/92 (106) 93 NIV Bilevel 60.00 04/27/20 11:11 62 45 96 70.00 04/27/20 11:00 76 33 139/84 (102) 98 NIV Bilevel 70.00 04/27/20 10:57 NIV Bilevel 70.00 04/27/20 10:00 77 140/93 (109) 96 NIV Bilevel 80.00 04/27/20 09:00 71 25 143/91 (108) 97 NIV Bilevel 80.00 04/27/20 08:39 NIV Bilevel 80.00 04/27/20 08:30 74 32 97 80.00 04/27/20 08:00 90 159/88 (111) Vapotherm 40.00 100.00 04/27/20 08:00 91 Vapotherm 40.00 100 04/27/20 07:49 83 Vapotherm 40.00 100 04/27/20 07:47 36.8 04/27/20 07:00 71 04/27/20 07:00 67 28 146/96 (113) 99 Vapotherm 40.00 100.00 04/27/20 06:06 Vapotherm 40.00 100.00 04/27/20 06:00 81 35 133/69 (90) 95 Vapotherm 30.00 75.00 I & O 04/28/20 07:00 Intake Total 2699.5 ml Output Total 3200 ml Balance -500.5 ml Height & Weight Height: '" Weight: lbs. oz. kg; 27.34 BMI Method: General Appearance: No Apparent Distress, WD/WN HEENT: PERRL/EOMI, Moist Mucous Membranes; No Scleral Icterus (L), No Scleral Icterus (R) Neck: Normal Inspection, Supple Respiratory: Decreased Breath Sounds Cardiovascular: Regular Rate, Rhythm, No Murmur Capillary Refill: Less Than 3 Seconds Extremity: Normal Capillary Refill, No Calf Tenderness, No Pedal Edema Neurologic/Psychiatric: Alert, Oriented x3 Skin: Normal Color, Warm/Dry Results Lab Laboratory Tests 04/26/20 05:41 04/27/20 03:00 04/28/20 04:05 Assessment/Plan Assessment/Plan COVID19- Dx: 04/19 -Transferred to ICU yesterday secondary to increasing oxygen requirements. Decadron-- 20mg IV daily -Continue BiPAP Continue Remdesivir S/p convalescent plasma Oxygen CXR reviewed -Awake proning -Repeat Ddimer, BNP, and ferritin -Check bilateral LE US r/o DVT and increase Lovenox to theraputic dosing. Pneumonia - worsening leukocytosis - Vanco and cefepime -If MRSA swab returns negative will D/C Vanco -Siddiqui cultures are pending Probable PE -Full dose Lovenox BELTRAN GÓMEZ DO Apr 28, 2020 05:30
[2020-04-28] MEDS: ADVAIR HFA 115/21 MCG INHALER 8 GM IH SCH ×2 (07:40→19:40)
[2020-04-28] MEDS: VANCOMYCIN 1250 MG/NS 250 ML IVPB IV SCH ×4 (08:29→19:51)
[2020-04-28] MEDS: ENOXAPARIN 80 MG/0.8 ML (LOVENOX) SYR SC SCH ×2 (08:29→19:59)
[2020-04-28] MEDS: dexAMETHasone INJECTION 20 MG in NS (IVPB) 50 ML IV SCH (09:14)
[2020-04-28] MEDS: REMDESIVIR INJ (NON-FORMULARY) 100 MG in NS (IVPB) 230 ML IV SCH (13:52)
[2020-04-28] MEDS ORDERED: TROUGH ORDER-PHARMACY XX NR (19:00)
[2020-04-28] MEDS ORDERED: ALPRAZolam 0.25 MG (XANAX) TAB PO ONE (20:45)
[2020-04-28] MEDS ORDERED: ALPRAZolam 0.25 MG (XANAX) TAB ONE (20:46)
--- NOTE | 2020-04-28 23:23 | NUR ---
THIS RN ASSISTED PT TO PRONE POSITION AT THIS TIME. SATTING 100% ON BIPAP 15/8 45%.
[2020-04-29] VITALS (24 sets, daily range): BP systolic 109–152; BP diastolic 70–96
[2020-04-29] MEDS: RT-ALBUTEROL INHALER HFA (VENTOLIN HFA) 18 GM IH SCH ×6 (02:07→23:18)
--- NOTE | 2020-04-29 02:48 | NUR ---
THIS RN ASSISTED PT TO SUPINE POSITION. PT SATURATING 95% ON BIPAP 15/8 AND 45%.
[2020-04-29 03:05] LABS: ABG BASE EXCESS 2.6 MMOL/L (-2.5-2.5); ABG OXYGEN SATURATION 88 % (94-100); ABG PCO2 37 MMHG (35-45); ABG PH 7.46 (7.37-7.43); ABG PO2 61 MMHG (79-93); ABG TCO2 27.4 MMOL/L (21.0-31.0)
[2020-04-29 03:15] LABS: ALLENS TEST POSITIVE; INSPIRED O2 45; PATIENT TEMP 36.2; VENTILATOR NO
--- NOTE | 2020-04-29 04:23 | Pulmonary Progress Note ---
Subjective Time Seen by a Provider: 04:21 Subjective/Events-last exam Pt is still requiring BiPAP Sepsis Event Evaluation Height, Weight, BMI Height: '" Weight: lbs. oz. kg; 27.34 BMI Method: Exam Exam Vital Signs Date Time Temp Pulse Resp B/P (MAP) Pulse Ox O2 Delivery O2 Flow Rate FiO2 04/29/20 04:02 36.3 04/29/20 04:00 96 NIV Bilevel 45 04/29/20 04:00 74 26 129/79 (96) 96 NIV Bilevel 50.00 04/29/20 03:00 71 22 126/81 (96) 94 NIV Bilevel 50.00 04/29/20 02:07 56 29 96 45.00 04/29/20 02:00 66 32 116/70 (85) 96 NIV Bilevel 50.00 04/29/20 01:00 64 25 128/89 (102) 97 NIV Bilevel 50.00 04/29/20 01:00 62 04/29/20 00:00 64 24 126/71 (89) 97 NIV Bilevel 50.00 04/28/20 23:28 36.4 04/28/20 23:18 94 NIV Bilevel 45 04/28/20 23:00 64 23 136/91 (106) 96 NIV Bilevel 50.00 04/28/20 22:41 62 12 94 45.00 04/28/20 22:00 63 25 128/90 (103) 97 NIV Bilevel 50.00 04/28/20 21:00 72 22 132/83 (99) 93 NIV Bilevel 50.00 04/28/20 20:02 36.2 04/28/20 20:00 94 NIV Bilevel 45 04/28/20 20:00 67 21 141/89 (106) 96 NIV Bilevel 50.00 04/28/20 19:40 72 29 96 45.00 04/28/20 19:00 60 04/28/20 19:00 71 33 141/87 (105) 96 NIV Bilevel 50.00 04/28/20 18:00 69 30 133/96 (108) 92 NIV Bilevel 50.00 04/28/20 17:00 140/94 (109) Vapotherm 40.00 100.00 04/28/20 16:59 37.4 04/28/20 16:10 94 NIV Bilevel 45 04/28/20 16:00 75 25 131/90 (104) 94 NIV Bilevel 50.00 04/28/20 15:00 68 20 130/80 (97) 94 NIV Bilevel 50.00 04/28/20 14:52 63 29 93 45.00 04/28/20 14:00 67 30 131/82 (98) 93 NIV Bilevel 50.00 04/28/20 13:00 78 22 115/75 (88) 22 Vapotherm 40.00 100.00 04/28/20 12:24 76 04/28/20 12:03 96 NIV Bilevel 45 04/28/20 12:03 37.1 04/28/20 12:00 72 25 123/92 (102) 96 NIV Bilevel 50.00 04/28/20 11:00 83 25 134/92 (106) 93 NIV Bilevel 50.00 04/28/20 10:49 72 27 91 45.00 04/28/20 10:00 83 25 119/81 (94) 94 NIV Bilevel 50.00 04/28/20 09:00 04/28/20 08:52 82 32 129/92 (104) 91 Vapotherm 40.00 100.00 04/28/20 08:34 92 NIV Bilevel 45 04/28/20 08:31 37.2 04/28/20 07:40 69 33 91 45.00 04/28/20 07:00 67 04/28/20 07:00 68 25 133/83 (100) 92 NIV Bilevel 50.00 04/28/20 06:00 75 31 129/83 (98) 91 NIV Bilevel 45.00 04/28/20 05:00 80 22 137/90 (106) 96 NIV Bilevel 45.00 I & O 04/29/20 07:00 Intake Total 2082.0 ml Output Total 1405 ml Balance 677.0 ml Height & Weight Height: '" Weight: lbs. oz. kg; 27.34 BMI Method: General Appearance: No Apparent Distress, WD/WN HEENT: PERRL/EOMI, Moist Mucous Membranes; No Scleral Icterus (L), No Scleral Icterus (R) Neck: Normal Inspection, Supple Respiratory: Decreased Breath Sounds Cardiovascular: Regular Rate, Rhythm, No Murmur Capillary Refill: Less Than 3 Seconds Extremity: Normal Capillary Refill, No Calf Tenderness, No Pedal Edema Neurologic/Psychiatric: Alert, Oriented x3 Skin: Normal Color, Warm/Dry Results Lab Laboratory Tests 04/28/20 04:05 Assessment/Plan Assessment/Plan COVID19- Dx: 04/19 Decadron-- 20mg IV daily -Labs pending -Continue BiPAP Continue Remdesivir S/p convalescent plasma Oxygen CXR reviewed -Awake proning -Repeat Ddimer, BNP, and ferritin -Check bilateral LE US r/o DVT- are negative Lovenox theraputic dosing. Pneumonia - worsening leukocytosis - Vanco and cefepime -If MRSA swab returns negative will D/C Vanco -Siddiqui cultures are pending Probable PE -Full dose Lovenox BELTRAN GÓMEZ DO Apr 29, 2020 04:23
[2020-04-29 04:46] LABS: ALBUMIN 3.4 GM/DL (3.2-4.5); CHLORIDE 100 MMOL/L (98-107); POTASSIUM 4.7 MMOL/L (3.6-5.0); SODIUM 137 MMOL/L (135-145)
[2020-04-29 04:47] LABS: CALCIUM 8.5 MG/DL (8.5-10.1)
[2020-04-29 04:49] LABS: GLUCOSE 122 MG/DL (70-105); TOTAL PROTEIN 6.4 GM/DL (6.4-8.2)
[2020-04-29 04:50] LABS: CARBON DIOXIDE 26 MMOL/L (21-32)
[2020-04-29 04:51] LABS: BILIRUBIN,TOTAL 0.9 MG/DL (0.1-1.0)
[2020-04-29 04:52] LABS: ALKALINE PHOSPHATASE 87 U/L (40-136); GFR ESTIMATED > 60; PHOSPHORUS 3.8 MG/DL (2.3-4.7)
[2020-04-29 04:53] LABS: BUN/CREATININE RATIO 26
[2020-04-29 04:55] LABS: ALANINE AMINOTRANSFERASE 48 U/L (0-55); MAGNESIUM 2.1 MG/DL (1.6-2.4)
[2020-04-29 04:56] LABS: BASOPHILS % (AUTO) 0 % (0-10); EOSINOPHILS % (AUTO) 0 % (0-10); HEMATOCRIT 47 % (40-54); HEMOGLOBIN 15.7 g/dL (13.3-17.7); LYMPHOCYTES # (AUTO) 0.3 10^3/uL (1.0-4.0); LYMPHOCYTES % (AUTO) 3 % (12-44); MEAN CORPUSCULAR HEMOGLOBIN 31 pg (25-34); MEAN CORPUSCULAR HGB CONC 33 g/dL (32-36); MEAN CORPUSCULAR VOLUME 93 fL (80-99); MEAN PLATELET VOLUME 11.1 fL (9.0-12.2); MONOCYTES # (AUTO) 0.4 10^3/uL (0.0-1.0); MONOCYTES % (AUTO) 4 % (0-12); NEUTROPHILS # (AUTO) 10.2 10^3/uL (1.8-7.8); NEUTROPHILS % (AUTO) 93 % (42-75); PLATELET COUNT 264 10^3/uL (130-400)
[2020-04-29] MEDS: POTASSIUM CL 10MEQ/50ML IVPB 50 ML IV SCH (05:11)
[2020-04-29] MEDS: MAGNESIUM 1 GM/100 ML IVPB 100 ML IV SCH (05:11)
[2020-04-29] MEDS: KCL 20 MEQ TAB (K-DUR) PO SCH (05:11)
[2020-04-29 05:28] LABS: FIBRIN DEGRADATION PRODUCTS 9.6 UG/ML (0.00-0.49); INR 1.1 (0.8-1.4); PROTHROMBIN TIME PATIENT 14.9 SEC (12.2-14.7)
[2020-04-29] MEDS: CEFEPIME INJECTION 1,000 MG in WATER (STERILE) FOR INJECTION 10 ML IV SCH ×3 (06:08→17:10)
[2020-04-29] MEDS: PROMETHAZINE/ CODEINE SYRUP 5 ML UDC PO PRN (06:27)
[2020-04-29] MEDS: ADVAIR HFA 115/21 MCG INHALER 8 GM IH SCH ×2 (06:32→18:28)
[2020-04-29] MEDS: VANCOMYCIN 1250 MG/NS 250 ML IVPB IV SCH ×4 (08:00→16:11)
[2020-04-29] MEDS: ENOXAPARIN 80 MG/0.8 ML (LOVENOX) SYR SC SCH ×2 (09:50→20:31)
[2020-04-29] MEDS: dexAMETHasone INJECTION 20 MG in NS (IVPB) 50 ML IV SCH (09:50)
[2020-04-29] MEDS: ALPRAZolam 0.25 MG (XANAX) TAB PO PRN (20:32)
--- NOTE | 2020-04-29 21:50 | NUR ---
PATIENT ASSISTED TO PRONE POSITION. PATIENT ON VAPOTHERM 40L, 80%, SATTING 95%.
[2020-04-30] VITALS (22 sets, daily range): BP systolic 100–157; BP diastolic 55–103
[2020-04-30] MEDS: CEFEPIME INJECTION 1,000 MG in WATER (STERILE) FOR INJECTION 10 ML IV SCH ×5 (00:17→23:10)
[2020-04-30] MEDS: VANCOMYCIN 1250 MG/NS 250 ML IVPB IV SCH ×8 (00:17→23:10)
[2020-04-30] MEDS: RT-ALBUTEROL INHALER HFA (VENTOLIN HFA) 18 GM IH SCH ×5 (02:00→22:27)
--- NOTE | 2020-04-30 02:00 | NUR ---
PATIENT ASSISTED TO SUPINE POSITION, HIGH CACERES'S. VAPOTHERM 40L, 80% WITH O2 SAT 95%.
[2020-04-30] MEDS: BENZONATATE 100 MG (TESSALON) CAPSULE PO PRN (03:50)
--- NOTE | 2020-04-30 04:04 | Pulmonary Progress Note ---
Subjective Time Seen by a Provider: 04:02 Sepsis Event Evaluation Height, Weight, BMI Height: '" Weight: lbs. oz. kg; 27.34 BMI Method: Exam Exam Vital Signs Date Time Temp Pulse Resp B/P (MAP) Pulse Ox O2 Delivery O2 Flow Rate FiO2 04/30/20 02:13 91 Vapotherm 40.00 80 04/30/20 02:00 57 24 130/70 (90) 96 Vapotherm 40.00 80.00 04/30/20 01:00 67 04/30/20 01:00 67 29 157/83 (107) 100 Vapotherm 40.00 80.00 04/30/20 00:00 61 18 154/89 (110) 100 Vapotherm 40.00 80.00 04/29/20 23:59 98 Vapotherm 40.00 80 04/29/20 23:18 98 Vapotherm 40.00 80 04/29/20 23:00 56 22 152/96 (114) 100 Vapotherm 40.00 80.00 04/29/20 22:00 62 139/77 (97) 92 Vapotherm 40.00 80.00 04/29/20 21:00 61 31 136/90 (105) 98 Vapotherm 40.00 80.00 04/29/20 20:00 95 Vapotherm 40.00 80 04/29/20 20:00 74 34 123/76 (92) 93 Vapotherm 40.00 80.00 04/29/20 20:00 36.9 04/29/20 19:00 71 04/29/20 19:00 71 35 124/78 (93) 95 Vapotherm 40.00 80.00 04/29/20 18:32 40.00 80.00 04/29/20 18:28 97 Vapotherm 40.00 80 04/29/20 18:00 70 33 131/80 (97) 96 Vapotherm 40.00 90.00 04/29/20 17:00 59 30 130/84 (99) 100 Vapotherm 40.00 90.00 04/29/20 16:00 63 28 123/85 (98) 99 Vapotherm 40.00 95.00 04/29/20 15:17 36.5 04/29/20 15:09 94 Vapotherm 40.00 90 9/27/20 15:00 65 35 122/77 (92) 99 Vapotherm 40.00 95.00 04/29/20 14:47 Vapotherm 40.00 95.00 04/29/20 14:36 97 Vapotherm 40.00 95 04/29/20 14:00 67 33 127/76 (93) 96 Vapotherm 40.00 95.00 04/29/20 13:00 74 32 125/74 (91) 96 Vapotherm 40.00 95.00 04/29/20 12:33 79 04/29/20 12:00 78 31 109/70 (83) 94 Vapotherm 40.00 95.00 04/29/20 11:51 36.7 04/29/20 11:51 93 Vapotherm 40.00 95 04/29/20 11:00 73 17 122/77 (92) 100 Vapotherm 40.00 95.00 04/29/20 10:00 77 36 119/73 (88) 95 Vapotherm 40.00 95.00 04/29/20 09:42 94 Vapotherm 40.00 95 04/29/20 09:00 76 24 123/77 (92) 96 Vapotherm 40.00 95.00 04/29/20 08:00 78 30 123/84 (97) 95 Vapotherm 40.00 95.00 04/29/20 07:35 93 Vapotherm 40.00 95 04/29/20 07:34 36.4 04/29/20 07:00 78 22 133/84 (100) 96 Vapotherm 40.00 95.00 04/29/20 07:00 67 04/29/20 06:32 93 Vapotherm 40.00 95 04/29/20 06:27 95 Vapotherm 40.00 95.00 04/29/20 06:15 95 Vapotherm 40.00 100.00 04/29/20 06:00 60 25 120/72 (88) 98 NIV Bilevel 50.00 04/29/20 05:00 61 22 112/75 (87) 99 NIV Bilevel 50.00 I & O 04/30/20 07:00 Intake Total 2783.5 ml Output Total 2000 ml Balance 783.5 ml Height & Weight Height: '" Weight: lbs. oz. kg; 27.34 BMI Method: General Appearance: No Apparent Distress, WD/WN HEENT: PERRL/EOMI, Moist Mucous Membranes; No Scleral Icterus (L), No Scleral Icterus (R) Neck: Normal Inspection, Supple Respiratory: Decreased Breath Sounds Cardiovascular: Regular Rate, Rhythm, No Murmur Capillary Refill: Less Than 3 Seconds Extremity: Normal Capillary Refill, No Calf Tenderness, No Pedal Edema Neurologic/Psychiatric: Alert, Oriented x3 Skin: Normal Color, Warm/Dry Results Lab Laboratory Tests 04/28/20 04:05 04/29/20 04:10 Assessment/Plan Assessment/Plan COVID19- Dx: 04/19 Decadron-- 20mg IV daily -Labs pending -Continue BiPAP Continue Remdesivir S/p convalescent plasma Oxygen CXR reviewed -Awake proning - bilateral LE US r/o DVT- are negative Lovenox theraputic dosing. Pneumonia - worsening leukocytosis - Vanco and cefepime -If MRSA swab returns negative will D/C Vanco -Siddiqui cultures are pending Probable PE -Full dose Lovenox BELTRAN GÓMEZ DO Apr 30, 2020 04:04
[2020-04-30 04:50] LABS: BASOPHILS % (AUTO) 0 % (0-10); EOSINOPHILS % (AUTO) 0 % (0-10); HEMATOCRIT 46 % (40-54); HEMOGLOBIN 15.3 g/dL (13.3-17.7); LYMPHOCYTES # (AUTO) 0.4 10^3/uL (1.0-4.0); LYMPHOCYTES % (AUTO) 3 % (12-44); MEAN CORPUSCULAR HEMOGLOBIN 31 pg (25-34); MEAN CORPUSCULAR HGB CONC 34 g/dL (32-36); MEAN CORPUSCULAR VOLUME 93 fL (80-99); MEAN PLATELET VOLUME 11.7 fL (9.0-12.2); MONOCYTES # (AUTO) 0.5 10^3/uL (0.0-1.0); MONOCYTES % (AUTO) 4 % (0-12); NEUTROPHILS # (AUTO) 13.3 10^3/uL (1.8-7.8); NEUTROPHILS % (AUTO) 92 % (42-75); PLATELET COUNT 270 10^3/uL (130-400); WHITE BLOOD COUNT 14.5 10^3/uL (4.3-11.0)
[2020-04-30 05:09] LABS: BUN/CREATININE RATIO 23; CARBON DIOXIDE 22 MMOL/L (21-32); CHLORIDE 102 MMOL/L (98-107); CREATININE SERUM 0.77 MG/DL (0.60-1.30); GFR ESTIMATED > 60; POTASSIUM 4.6 MMOL/L (3.6-5.0); SODIUM 134 MMOL/L (135-145)
[2020-04-30 05:10] LABS: CALCIUM 7.9 MG/DL (8.5-10.1); GLUCOSE 112 MG/DL (70-105); PHOSPHORUS 3.2 MG/DL (2.3-4.7)
[2020-04-30] MEDS: guaiFENesin SYRUP 100 MG/5 ML 10 ML (ROBITUSSIN SF) PO PRN (05:11)
[2020-04-30] MEDS: POTASSIUM CL 10MEQ/50ML IVPB 50 ML IV SCH (05:12)
[2020-04-30] MEDS: MAGNESIUM 1 GM/100 ML IVPB 100 ML IV SCH (05:12)
[2020-04-30] MEDS: KCL 20 MEQ TAB (K-DUR) PO SCH (05:12)
[2020-04-30] MEDS: PROMETHAZINE/ CODEINE SYRUP 5 ML UDC PO PRN ×3 (05:51→18:38)
[2020-04-30] MEDS ORDERED: TROUGH ORDER-PHARMACY XX NR (07:00)
[2020-04-30] MEDS: ADVAIR HFA 115/21 MCG INHALER 8 GM IH SCH ×2 (07:06→22:27)
--- NOTE | 2020-04-30 07:56 | NUR ---
VANCOMYCIN DOSING TROUGH LEVEL 14.7 - CONTINUE CURRENT DOSE OF VANC 1250 MG Q8H
[2020-04-30] MEDS: ENOXAPARIN 80 MG/0.8 ML (LOVENOX) SYR SC SCH ×2 (08:29→20:06)
[2020-04-30] MEDS: dexAMETHasone INJECTION 20 MG in NS (IVPB) 50 ML IV SCH (08:43)
[2020-04-30] MEDS: BENZONATATE 100 MG (TESSALON) CAPSULE PO SCH ×3 (09:12→20:06)
--- NOTE | 2020-04-30 11:15 | Diagnostic Imaging Report ---
INDICATION: Line placement. Frontal chest obtained at 10:55 a.m. is compared 04/27/2020. FINDINGS: Heart is mildly enlarged. There is mild central vascular congestion. Peripheral infiltrates are present which appears similar to the prior study. There is no pneumothorax or pleural fluid. There is a new right-sided PICC line with tip in the SVC right atrial junction. IMPRESSION: No change in bilateral infiltrates. New right-sided PICC line tip overlies SVC right atrial junction. Dictated by: Dictated on workstation # [id number]
--- NOTE | 2020-04-30 11:47 | NUR ---
THIS RN SPOKE WITH RADIOLOGIST TO CONFIRM PICC PLACEMENT. PICC IN CORRECT POSITION. Alycia KIM RN NOTIFIED PICC OK TO USE.
--- NOTE | 2020-04-30 14:20 | NUR ---
"RD ASSESSMENT PMHx: no significant PMH PT INTERACTION: Note pt is COVID-19, per chart review. Note all information for nutrition assessment for LOS is per chart review. Note avg PO intake 65% x4d. Note last BM was 04/27, and pt not currently on bowel regimen. Note unable to determine recent wt hx. ABNORMAL NUTRITION-RELATED LAB VALUES LOW: Na 134; Ca 7.9 HIGH: glu 112 Est. kcal needs: 1750 kcal | 20 kcal/kg Est. Pro needs: 71 g Pro | 0.8 g Pro/kg PES STATEMENT: Inadequate oral intake (NI-2.1) related to loss of appetite as evidenced by chart review | avg PO intake 65% x4d INTERVENTION: Continue with current diet order of Regular diet. Pt may benefit from nutrition supplementation if PO intake declines. Will continue to follow and reassess as pt needs, intake, and status change. Louann De Souza, MS, RD, LD"
--- NOTE | 2020-04-30 18:46 | NUR ---
PT ASSISTED BACK TO BED, CALL LIGHT AND OTHER PERSONAL ITEMS WITHIN REACH. PT HAS BEEN UP IN CHAIR FOR APPROXIMATELY 4 HOURS THIS AFTERNOON, PT TOLERATED WELL, NO NOTED OF INCREASED NEED FOR OXYGEN WHEN TRANSFERRING, NO NEEDS NOTED AT THIS TIME WILL CONTINUE TO MONITOR.
[2020-05-01] VITALS (28 sets, daily range): BP systolic 112–145; BP diastolic 55–101
[2020-05-01 01:40] LABS: BASOPHILS % (AUTO) 0 % (0-10); EOSINOPHILS % (AUTO) 0 % (0-10); HEMATOCRIT 44 % (40-54); HEMOGLOBIN 14.8 g/dL (13.3-17.7); LYMPHOCYTES # (AUTO) 0.4 10^3/uL (1.0-4.0); LYMPHOCYTES % (AUTO) 3 % (12-44); MEAN CORPUSCULAR HEMOGLOBIN 31 pg (25-34); MEAN CORPUSCULAR HGB CONC 34 g/dL (32-36); MEAN CORPUSCULAR VOLUME 92 fL (80-99); MONOCYTES # (AUTO) 0.5 10^3/uL (0.0-1.0); MONOCYTES % (AUTO) 4 % (0-12); NEUTROPHILS # (AUTO) 12.1 10^3/uL (1.8-7.8); NEUTROPHILS % (AUTO) 91 % (42-75); PLATELET COUNT 279 10^3/uL (130-400); WHITE BLOOD COUNT 13.2 10^3/uL (4.3-11.0)
[2020-05-01 01:50] LABS: CHLORIDE 103 MMOL/L (98-107)
[2020-05-01 01:51] LABS: POTASSIUM 4.6 MMOL/L (3.6-5.0); SODIUM 134 MMOL/L (135-145)
[2020-05-01 01:52] LABS: CALCIUM 7.8 MG/DL (8.5-10.1); GLUCOSE 131 MG/DL (70-105)
[2020-05-01 01:54] LABS: CARBON DIOXIDE 23 MMOL/L (21-32)
[2020-05-01 01:56] LABS: CREATININE SERUM 0.72 MG/DL (0.60-1.30); GFR ESTIMATED > 60; PHOSPHORUS 3.4 MG/DL (2.3-4.7)
[2020-05-01 01:57] LABS: BUN/CREATININE RATIO 24
[2020-05-01] MEDS: MAGNESIUM 1 GM/100 ML IVPB 100 ML IV SCH (02:00)
[2020-05-01] MEDS: POTASSIUM CL 10MEQ/50ML IVPB 50 ML IV SCH (02:00)
[2020-05-01] MEDS: KCL 20 MEQ TAB (K-DUR) PO SCH (02:00)
[2020-05-01] MEDS: RT-ALBUTEROL INHALER HFA (VENTOLIN HFA) 18 GM IH SCH ×6 (02:04→23:29)
[2020-05-01 02:36] LABS: ABG BASE EXCESS 4.5 MMOL/L (-2.5-2.5); ABG OXYGEN SATURATION 60 % (94-100); ABG PCO2 47 MMHG (35-45); ABG PH 7.41 (7.37-7.43); ABG TCO2 30.5 MMOL/L (21.0-31.0)
[2020-05-01 02:46] LABS: ABG PO2 38 MMHG (79-93); ALLENS TEST POSITIVE
[2020-05-01 02:47] LABS: INSPIRED O2 80% BIPAPA; PATIENT TEMP 36.6; VENTILATOR NO
[2020-05-01] MEDS ORDERED: FUROSEMIDE 40 MG/4 ML INJ (LASIX) IVP ONE (04:45)
--- NOTE | 2020-05-01 04:48 | Pulmonary Progress Note ---
Subjective Time Seen by a Provider: 04:43 Subjective/Events-last exam Pt is still requiring BIpap and high amounts of oxygen. Sepsis Event Evaluation Height, Weight, BMI Height: '" Weight: lbs. oz. kg; 27.34 BMI Method: Exam Exam Vital Signs Date Time Temp Pulse Resp B/P (MAP) Pulse Ox O2 Delivery O2 Flow Rate FiO2 05/01/20 03:13 54 27 92 NIV Bilevel 80.00 05/01/20 03:01 36.6 05/01/20 03:00 74 18 134/90 (105) NIV Bilevel 60.00 05/01/20 03:00 92 NIV Bilevel 80 05/01/20 02:05 55 23 94 80.00 05/01/20 02:00 52 21 135/88 (104) 92 NIV Bilevel 60.00 05/01/20 01:00 64 05/01/20 01:00 64 20 134/82 (99) 90 NIV Bilevel 80.00 05/01/20 00:00 63 141/93 (109) 93 NIV Bilevel 80.00 04/30/20 23:33 36.6 NIV Bilevel 80.00 04/30/20 23:14 92 NIV Bilevel 90 04/30/20 23:00 67 137/84 (101) 89 Vapotherm 40.00 100.00 04/30/20 22:28 95 Vapotherm 40.00 100 04/30/20 22:00 57 27 143/86 (105) 96 Vapotherm 40.00 100.00 04/30/20 21:00 64 27 137/103 (114) 90 Vapotherm 40.00 100.00 04/30/20 20:05 36.6 04/30/20 20:00 99 Vapotherm 40.00 100 04/30/20 20:00 61 144/85 (104) 97 Vapotherm 40.00 100.00 04/30/20 19:00 60 13 131/84 (100) 94 Vapotherm 40.00 100.00 04/30/20 19:00 60 04/30/20 18:00 65 38 130/76 (94) 96 Vapotherm 40.00 100.00 04/30/20 17:00 63 27 139/81 (100) 97 Vapotherm 40.00 100.00 04/30/20 16:53 94 Vapotherm 40.00 100 04/30/20 16:49 35.8 04/30/20 16:00 58 29 100 Vapotherm 40.00 100.00 04/30/20 15:00 78 26 93 Vapotherm 40.00 100.00 04/30/20 14:29 94 Vapotherm 40.00 100 04/30/20 14:00 69 25 122/76 (91) 96 Vapotherm 40.00 100.00 04/30/20 13:00 62 32 124/79 (94) 93 Vapotherm 40.00 100.00 04/30/20 12:48 71 04/30/20 12:35 94 Vapotherm 40.00 100 04/30/20 12:00 65 26 133/82 (99) 97 Vapotherm 40.00 100.00 04/30/20 11:05 95 Vapotherm 40.00 100 04/30/20 11:00 73 17 122/77 (92) 100 Vapotherm 40.00 100.00 04/30/20 10:00 77 36 119/73 (88) 95 Vapotherm 40.00 100.00 04/30/20 09:00 80 37 118/68 (85) 94 Vapotherm 40.00 100.00 04/30/20 08:52 94 Vapotherm 40.00 100 04/30/20 08:30 94 Vapotherm 40.00 100.00 04/30/20 08:00 35.4 04/30/20 08:00 58 25 127/80 (96) 92 NIV Bilevel 60.00 04/30/20 07:00 63 31 124/79 (94) 97 NIV Bilevel 60.00 04/30/20 06:56 61 29 96 60.00 04/30/20 06:39 65 04/30/20 06:00 56 29 127/80 (96) 98 NIV Bilevel 60.00 04/30/20 05:12 62 21 97 NIV Bilevel 60.00 04/30/20 05:00 69 33 120/55 (76) 96 Vapotherm 40.00 100.00 I & O 05/01/20 07:00 Intake Total 1240 ml Output Total 3550 ml Balance -2310 ml Height & Weight Height: '" Weight: lbs. oz. kg; 27.34 BMI Method: General Appearance: No Apparent Distress, WD/WN HEENT: PERRL/EOMI, Moist Mucous Membranes; No Scleral Icterus (L), No Scleral Icterus (R) Neck: Normal Inspection, Supple Respiratory: Decreased Breath Sounds Cardiovascular: Regular Rate, Rhythm, No Murmur Capillary Refill: Less Than 3 Seconds Extremity: Normal Capillary Refill, No Calf Tenderness, No Pedal Edema Neurologic/Psychiatric: Alert, Oriented x3 Skin: Normal Color, Warm/Dry Results Lab Laboratory Tests 04/30/20 04:15 05/01/20 01:27 Assessment/Plan Assessment/Plan COVID19- Dx: 04/19 Decadron-- 20mg IV daily -Lasix x 1 40mg - BiPAP Remdesivir S/p convalescent plasma Oxygen CXR reviewed -Awake proning - bilateral LE US r/o DVT- are negative Lovenox theraputic dosing. Pneumonia - worsening leukocytosis - Vanco and cefepime -If MRSA swab returns negative will D/C Vanco -Siddiqui cultures are pending Probable PE -Full dose Lovenox BELTRAN GÓMEZ DO May 01, 2020 04:48
[2020-05-01] MEDS ORDERED: FUROSEMIDE 40 MG/4 ML INJ (LASIX) ONE (04:49)
[2020-05-01] MEDS: CEFEPIME INJECTION 1,000 MG in WATER (STERILE) FOR INJECTION 10 ML IV SCH ×4 (05:53→23:24)
[2020-05-01] MEDS: ADVAIR HFA 115/21 MCG INHALER 8 GM IH SCH ×2 (07:38→20:11)
[2020-05-01] MEDS: VANCOMYCIN 1250 MG/NS 250 ML IVPB IV SCH ×6 (08:52→23:24)
[2020-05-01] MEDS: dexAMETHasone INJECTION 20 MG in NS (IVPB) 50 ML IV SCH (08:52)
[2020-05-01] MEDS: ENOXAPARIN 80 MG/0.8 ML (LOVENOX) SYR SC SCH ×2 (08:53→19:24)
[2020-05-01] MEDS: PANTOPRAZOLE 40 MG (PROTONIX) VIAL IV SCH (08:53)
[2020-05-01] MEDS: BENZONATATE 100 MG (TESSALON) CAPSULE PO SCH ×3 (08:53→19:25)
[2020-05-01] MEDS: PROMETHAZINE/ CODEINE SYRUP 5 ML UDC PO PRN ×2 (09:18→19:25)
--- NOTE | 2020-05-01 09:26 | NUR ---
PT ASSESSMENT COMPLETE SEE FLOW SHEET, PT PLACED BACK ON BIPAP BY THIS RN WITH PREVIOUS SETTING, PT SA02 NOTED TO BE 89-90% WITH BIPAP, THIS RN NOTIFIED RT, PT VOICES NO C/O OF PAIN, COUGH MEDICINE GIVEN PRIOR TO PLACING PT BACK ON BIPAP. THIS RN REMAINS IN ROOM AT THIS TIME WILL CONTINUE TO MONITOR
[2020-05-01] MEDS: morphine INJ 4 MG/ML 1 ML (VIAL/SYRINGE) IVP PRN (09:43)
[2020-05-01] MEDS ORDERED: NS IV 1000 ML 1,000 ML ONE (09:44)
--- NOTE | 2020-05-01 09:46 | NUR ---
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 1MG MORPHINE GIVEN. Addendum: 05/01/20 at 1021 by FAMILIA KIM RN VERBAL CONSENT OBTAINED FOR ART LINE PLACEMENT WITNESSED BY THIS RN AND Chacho PETERS RN.
[2020-05-01] MEDS ORDERED: LIDOCAINE 1% INJ 20 ML 20 ML VIAL ONE (10:20)
--- NOTE | 2020-05-01 10:57 | Anesthesia-Procedure Note ---
Procedures/Interventions Procedure Start/Stop/Diagnosis Date of Procedure: May 01, 2020 Start Time: 10:10 Referring Physician: Dr. Crawford Preprocedural Diagnosis: COVID + Brief History Called to ICU 2 for an arterial line placement. Pt in on BiPAP and requiring frequent ABG's. Flash obtained after needle redirect times one. Catheter threaded easily and good waveform obtained after being secured with a tegaderm. Pt tolerated the procedure well. We will be available if needed. Stop Time: 10:40 Postprocedural Diagnosis: same Arterial Line Arterial Line Catheter: 20G Type: Radial Location: Left Procedure: prepped, draped in sterile fashion, 1% lidocaine used to numb region, good wave-form was obtained, patient tolerated procedure well, no imm ediate complications, post procedure area cleaned, post procedure dressing applied SHIRA CADET DO May 01, 2020 10:57
[2020-05-01 11:03] LABS: ABG BASE EXCESS -15.9 MMOL/L (-2.5-2.5); ABG OXYGEN SATURATION 99 % (94-100); ABG PH 7.44 (7.37-7.43); ABG PO2 110 MMHG (79-93); ABG TCO2 8.6 MMOL/L (21.0-31.0)
[2020-05-01 11:05] LABS: ABG PCO2 12 MMHG (35-45)
[2020-05-01 11:06] LABS: ALLENS TEST YES-POS; INSPIRED O2 80%; VENTILATOR NO
--- NOTE | 2020-05-01 11:14 | NUR ---
DR GÓMEZ NOTIFIED OF ABG RESULTS NO NEW ORDERS RECEIVED, ART LINE PLACEMENT COMPLETED BY ANESTHESIA INTO LEFT RADIAL. PT TOLERATED WELL. PT SITTING UP IN BED RT IN ROOM WITH PT AT THIS TIME AND SA02 NOTED 92-94% PT REMAINS TACHYPNEIC, CALL LIGHT AND OTHER PERSONAL ITEMS WITHIN REACH WILL CONTINUE TO MONITOR.
--- NOTE | 2020-05-01 11:55 | NUR ---
DR GÓMEZ CALLED NEW TELEPHONE ORDERS RECEIVED TO GIVE PT ANOTHER UNIT OF CONVALESCENT PLASMA. ORDERS ENTERED.
[2020-05-01] MEDS: ALPRAZolam 0.25 MG (XANAX) TAB PO PRN ×2 (13:12→22:05)
[2020-05-02] VITALS (28 sets, daily range): BP systolic 89–143; BP diastolic 53–90
[2020-05-02 01:16] LABS: ABG BASE EXCESS 2.1 MMOL/L (-2.5-2.5); ABG OXYGEN SATURATION 93 % (94-100); ABG PCO2 39 MMHG (35-45); ABG PH 7.44 (7.37-7.43); ABG PO2 67 MMHG (79-93); ABG TCO2 27.2 MMOL/L (21.0-31.0)
[2020-05-02 01:18] LABS: ALLENS TEST POSITIVE; BASOPHILS % (AUTO) 0 % (0-10); EOSINOPHILS % (AUTO) 0 % (0-10); HEMATOCRIT 40 % (40-54); HEMOGLOBIN 13.5 g/dL (13.3-17.7); INSPIRED O2 70% BIPAP; LYMPHOCYTES # (AUTO) 0.3 10^3/uL (1.0-4.0); LYMPHOCYTES % (AUTO) 3 % (12-44); MEAN CORPUSCULAR HEMOGLOBIN 31 pg (25-34); MEAN CORPUSCULAR HGB CONC 34 g/dL (32-36); MEAN CORPUSCULAR VOLUME 92 fL (80-99); MONOCYTES # (AUTO) 0.3 10^3/uL (0.0-1.0); MONOCYTES % (AUTO) 3 % (0-12); NEUTROPHILS # (AUTO) 11.5 10^3/uL (1.8-7.8); NEUTROPHILS % (AUTO) 93 % (42-75); PATIENT TEMP 36.4; PLATELET COUNT 266 10^3/uL (130-400); VENTILATOR NO; WHITE BLOOD COUNT 12.4 10^3/uL (4.3-11.0)
[2020-05-02 01:23] LABS: CHLORIDE 106 MMOL/L (98-107); POTASSIUM 4.2 MMOL/L (3.6-5.0); SODIUM 136 MMOL/L (135-145)
[2020-05-02 01:24] LABS: CALCIUM 7.6 MG/DL (8.5-10.1)
[2020-05-02 01:25] LABS: GLUCOSE 201 MG/DL (70-105)
[2020-05-02 01:27] LABS: CARBON DIOXIDE 22 MMOL/L (21-32)
[2020-05-02 01:29] LABS: CREATININE SERUM 0.76 MG/DL (0.60-1.30); GFR ESTIMATED > 60; PHOSPHORUS 2.8 MG/DL (2.3-4.7)
[2020-05-02 01:30] LABS: BUN/CREATININE RATIO 29
[2020-05-02 01:31] LABS: MAGNESIUM 2.1 MG/DL (1.6-2.4)
[2020-05-02] MEDS: MAGNESIUM 1 GM/100 ML IVPB 100 ML IV SCH (01:33)
[2020-05-02] MEDS: POTASSIUM CL 10MEQ/50ML IVPB 50 ML IV SCH (01:33)
[2020-05-02] MEDS: KCL 20 MEQ TAB (K-DUR) PO SCH (01:34)
[2020-05-02] MEDS: RT-ALBUTEROL INHALER HFA (VENTOLIN HFA) 18 GM IH SCH ×6 (02:29→21:45)
--- NOTE | 2020-05-02 05:27 | Pulmonary Progress Note ---
Subjective Time Seen by a Provider: 05:24 Sepsis Event Evaluation Height, Weight, BMI Height: '" Weight: lbs. oz. kg; 27.34 BMI Method: Exam Exam Vital Signs Date Time Temp Pulse Resp B/P (MAP) Pulse Ox O2 Delivery O2 Flow Rate FiO2 05/02/20 03:12 36.6 05/02/20 03:11 96 NIV Bilevel 70 05/02/20 02:29 59 20 95 70.00 05/02/20 02:00 64 24 124/61 (82) 93 NIV Bilevel 70.00 05/02/20 01:01 71 24 118/63 (81) 96 NIV Bilevel 70.00 05/02/20 01:00 73 05/02/20 00:00 67 17 122/59 (80) 97 NIV Bilevel 70.00 05/01/20 23:33 96 NIV Bilevel 70 05/01/20 23:33 36.4 NIV Bilevel 70.00 05/01/20 23:29 79 20 98 70.00 05/01/20 23:00 68 20 125/58 (80) 97 NIV Bilevel 80.00 05/01/20 22:11 NIV Bilevel 80.00 05/01/20 22:00 61 26 140/66 (90) 96 NIV Bilevel 90.00 05/01/20 21:00 61 26 140/66 (90) 96 NIV Bilevel 90.00 05/01/20 21:00 68 13 134/63 (86) 98 NIV Bilevel 90.00 05/01/20 20:24 80 11 119/55 (76) 96 NIV Bilevel 90.00 05/01/20 20:17 69 33 98 100.00 05/01/20 20:11 97 Vapotherm 40.00 100 05/01/20 20:00 67 128/59 (82) 96 Vapotherm 40.00 100.00 05/01/20 19:32 96 Vapotherm 40.00 100 05/01/20 19:24 36.4 Vapotherm 40.00 100.00 05/01/20 19:00 71 18 129/65 (86) 95 Vapotherm 40.00 100.00 05/01/20 19:00 71 05/01/20 18:00 78 28 126/62 (83) 98 Vapotherm 40.00 100.00 05/01/20 17:00 75 18 136/74 (94) 94 Vapotherm 40.00 100.00 05/01/20 16:55 99 Vapotherm 40.00 100 05/01/20 16:54 36.4 05/01/20 16:00 55 19 123/64 (83) 96 Vapotherm 40.00 100.00 05/01/20 15:13 66 29 95 100.00 05/01/20 15:00 63 22 123/63 (83) 94 Vapotherm 40.00 100.00 05/01/20 14:00 64 112/62 (79) 98 Vapotherm 40.00 100.00 05/01/20 13:00 65 118/60 (79) 98 Vapotherm 40.00 100.00 05/01/20 12:55 99 NIV Bilevel 40.00 100 05/01/20 12:55 37.2 05/01/20 12:50 62 05/01/20 12:00 64 9 131/66 (87) 95 Vapotherm 40.00 100.00 05/01/20 11:12 70 32 92 100.00 05/01/20 11:00 87 140/69 (92) 91 Vapotherm 40.00 100.00 05/01/20 10:00 72 27 134/86 (102) 94 Vapotherm 40.00 100.00 05/01/20 09:00 80 17 122/86 (98) 93 Vapotherm 40.00 100.00 05/01/20 08:45 92 Vapotherm 40.00 100 05/01/20 08:30 36.0 05/01/20 08:00 83 47 121/87 (98) 87 Vapotherm 40.00 100.00 05/01/20 07:41 88 Vapotherm 40.00 100 05/01/20 07:38 61 30 94 80.00 05/01/20 07:24 Vapotherm 40.00 100.00 05/01/20 07:00 78 05/01/20 07:00 59 31 133/101 (112) 92 NIV Bilevel 80.00 05/01/20 06:36 58 05/01/20 06:00 59 23 145/98 (114) 95 NIV Bilevel 80.00 I & O 05/02/20 07:00 Intake Total 420 ml Output Total 2850 ml Balance -2430 ml Height & Weight Height: '" Weight: lbs. oz. kg; 27.34 BMI Method: General Appearance: No Apparent Distress, WD/WN HEENT: PERRL/EOMI, Moist Mucous Membranes; No Scleral Icterus (L), No Scleral Icterus (R) Neck: Normal Inspection, Supple Respiratory: Decreased Breath Sounds Cardiovascular: Regular Rate, Rhythm, No Murmur Capillary Refill: Less Than 3 Seconds Extremity: Normal Capillary Refill, No Calf Tenderness, No Pedal Edema Neurologic/Psychiatric: Alert, Oriented x3 Skin: Normal Color, Warm/Dry Results Lab Laboratory Tests 05/01/20 01:27 05/02/20 00:56 Assessment/Plan Assessment/Plan COVID19- Dx: 04/19 Decadron-- 20mg IV daily -Lasix x 1 40mg - BiPAP Remdesivir S/p convalescent plasma-- repeat Convalescent plasma Oxygen CXR reviewed -Awake proning - bilateral LE US r/o DVT- are negative Lovenox theraputic dosing. Pneumonia - worsening leukocytosis - Vanco and cefepime -If MRSA swab returns negative will D/C Vanco -Siddiqui cultures are pending Probable PE -Full dose Lovenox BELTRAN GÓMEZ DO May 02, 2020 05:27
[2020-05-02] MEDS ORDERED: FUROSEMIDE 40 MG/4 ML INJ (LASIX) IVP ONE (05:30)
[2020-05-02] MEDS: CEFEPIME INJECTION 1,000 MG in WATER (STERILE) FOR INJECTION 10 ML IV SCH ×3 (06:03→17:13)
[2020-05-02] MEDS: ADVAIR HFA 115/21 MCG INHALER 8 GM IH SCH ×2 (07:28→19:04)
[2020-05-02] MEDS: PROMETHAZINE/ CODEINE SYRUP 5 ML UDC PO PRN ×2 (09:03→22:05)
[2020-05-02] MEDS: BENZONATATE 100 MG (TESSALON) CAPSULE PO SCH ×3 (09:03→22:05)
[2020-05-02] MEDS: VANCOMYCIN 1250 MG/NS 250 ML IVPB IV SCH ×4 (09:05→15:41)
[2020-05-02] MEDS: PANTOPRAZOLE 40 MG (PROTONIX) VIAL IV SCH (09:05)
[2020-05-02] MEDS: dexAMETHasone INJECTION 20 MG in NS (IVPB) 50 ML IV SCH (09:05)
[2020-05-02] MEDS: ENOXAPARIN 80 MG/0.8 ML (LOVENOX) SYR SC SCH ×2 (09:05→22:05)
[2020-05-02] MEDS: morphine INJ 4 MG/ML 1 ML (VIAL/SYRINGE) IVP PRN (09:15)
[2020-05-02] MEDS: ALPRAZolam 0.25 MG (XANAX) TAB PO PRN ×2 (09:15→22:05)
--- NOTE | 2020-05-02 10:28 | NUR ---
[id number] NURSING ASSESSMENT COMPLETE SEE FLOW SHEET, PT ON VAPOTHERM WHEN THIS RN INTO ROOM, PT SA02 NOTED TO BE IN 88-90, THIS RN PLACED PT ON BIPAP, PT CONTINUED TO COUGH AND WAS NOTED TO BE TACHYPNEIC, MORPHINE 1MG GIVEN WELL XANAX. PT SITTING UP ON SIDE OF BED IS LEANING OVER BEDSIDE TABLE. WILL CONTINUE TO MONITOR
[2020-05-02] MEDS ORDERED: MONTELUKAST 10 MG (SINGULAIR) TAB PO ONE (10:30)
[2020-05-02] MEDS ORDERED: NS IV 500 ML 500 ML IV ONE (10:30)
[2020-05-02] MEDS ORDERED: MONTELUKAST 10 MG (SINGULAIR) TAB ONE (10:38)
--- NOTE | 2020-05-02 18:16 | NUR ---
PT ABLE TO TOLERATE PRONE POSITIONING THIS AFTERNOON AND TOLERATED WELL, WAS ABLE TO REPOSITION TO SUPINE POSITION AND PLACED ON VAPOTHERM, PT ABLE TO MAIN SA02 AT 95-100%, PT EDUCATED ON THE IMPORTANCE OF PRONE POSITIONING, PT SITTING UP IN BED WATCHING TV, CALL LIGHT AND OTHER PERSONAL ITEMS WITHIN REACH WILL CONTINUE TO MONITOR.
[2020-05-02] MEDS: MONTELUKAST 10 MG (SINGULAIR) TAB PO SCH (22:05)
[2020-05-03] VITALS (24 sets, daily range): BP systolic 85–163; BP diastolic 43–87
[2020-05-03] MEDS: CEFEPIME INJECTION 1,000 MG in WATER (STERILE) FOR INJECTION 10 ML IV SCH ×5 (00:05→23:30)
[2020-05-03] MEDS: VANCOMYCIN 1250 MG/NS 250 ML IVPB IV SCH ×8 (00:05→23:30)
[2020-05-03] MEDS: RT-ALBUTEROL INHALER HFA (VENTOLIN HFA) 18 GM IH SCH ×6 (03:16→22:15)
[2020-05-03 03:32] LABS: ABG BASE EXCESS 3.9 MMOL/L (-2.5-2.5); ABG OXYGEN SATURATION 98 % (94-100); ABG PCO2 40 MMHG (35-45); ABG PH 7.45 (7.37-7.43); ABG PO2 123 MMHG (79-93); ABG TCO2 28.9 MMOL/L (21.0-31.0); BASOPHILS % (AUTO) 0 % (0-10); EOSINOPHILS % (AUTO) 0 % (0-10); HEMATOCRIT 43 % (40-54); HEMOGLOBIN 14.6 g/dL (13.3-17.7); LYMPHOCYTES # (AUTO) 0.5 10^3/uL (1.0-4.0); LYMPHOCYTES % (AUTO) 3 % (12-44); MEAN CORPUSCULAR HEMOGLOBIN 31 pg (25-34); MEAN CORPUSCULAR HGB CONC 34 g/dL (32-36); MEAN CORPUSCULAR VOLUME 91 fL (80-99); MEAN PLATELET VOLUME 10.9 fL (9.0-12.2); MONOCYTES # (AUTO) 0.5 10^3/uL (0.0-1.0); MONOCYTES % (AUTO) 4 % (0-12); NEUTROPHILS # (AUTO) 13.7 10^3/uL (1.8-7.8); NEUTROPHILS % (AUTO) 90 % (42-75); PLATELET COUNT 290 10^3/uL (130-400); WHITE BLOOD COUNT 15.1 10^3/uL (4.3-11.0)
[2020-05-03 03:38] LABS: ALLENS TEST ART LINE; INSPIRED O2 60%; VENTILATOR NO
[2020-05-03 03:51] LABS: BUN/CREATININE RATIO 27; CALCIUM 7.9 MG/DL (8.5-10.1); CARBON DIOXIDE 23 MMOL/L (21-32); CHLORIDE 103 MMOL/L (98-107); CREATININE SERUM 0.79 MG/DL (0.60-1.30); GFR ESTIMATED > 60; GLUCOSE 140 MG/DL (70-105); MAGNESIUM 2.1 MG/DL (1.6-2.4); PHOSPHORUS 3.3 MG/DL (2.3-4.7); POTASSIUM 4.5 MMOL/L (3.6-5.0); SODIUM 136 MMOL/L (135-145)
[2020-05-03 04:05] LABS: LYMPHOCYTES % (MANUAL) 3 %; MONOCYTES % (MANUAL) 4 %; NEUTROPHILS % (MANUAL) 93 %; NUCLEATED RED BLOOD CELLS 1; POLYCHROMASIA SLIGHT
--- NOTE | 2020-05-03 04:54 | Pulmonary Progress Note ---
Subjective Time Seen by a Provider: 04:50 Subjective/Events-last exam Pt has improved oxygenation however still on BiPAP Sepsis Event Evaluation Height, Weight, BMI Height: '" Weight: lbs. oz. kg; 27.34 BMI Method: Exam Exam Vital Signs Date Time Temp Pulse Resp B/P (MAP) Pulse Ox O2 Delivery O2 Flow Rate FiO2 05/03/20 03:16 65 26 100 60.00 05/03/20 03:00 64 28 119/61 (80) 99 Vapotherm 40.00 85.00 05/03/20 02:00 66 22 128/62 (84) 99 Vapotherm 40.00 85.00 05/03/20 01:00 68 05/03/20 01:00 67 22 128/66 (86) 97 Vapotherm 40.00 85.00 05/03/20 00:00 65 29 141/71 (94) 97 Vapotherm 40.00 85.00 05/02/20 23:59 95 NIV Bilevel 60 05/02/20 23:00 64 12 117/73 (88) 97 Vapotherm 40.00 85.00 05/02/20 22:00 77 12 89/66 (74) 97 Vapotherm 40.00 85.00 05/02/20 21:46 95 Vapotherm 40.00 85 05/02/20 21:00 77 27 129/72 (91) 97 Vapotherm 40.00 85.00 05/02/20 20:00 95 Vapotherm 40.00 85 05/02/20 19:52 36.6 79 16 126/71 (89) 95 Vapotherm 40.00 85.00 05/02/20 19:06 99 Vapotherm 40.00 100 05/02/20 19:00 72 05/02/20 19:00 73 18 143/72 (95) 100 NIV Bilevel 70.00 05/02/20 18:00 77 6 138/71 (93) 93 NIV Bilevel 70.00 05/02/20 17:00 64 135/71 (92) 93 NIV Bilevel 70.00 05/02/20 16:40 96 NIV Bilevel 60 05/02/20 15:49 36.2 61 20 117/64 (81) 94 NIV Bilevel 60.00 05/02/20 15:46 36.2 61 20 117/64 94 NIV Bilevel 60 05/02/20 15:34 71 27 95 60.00 05/02/20 15:00 74 18 105/53 (70) 82 NIV Bilevel 70.00 05/02/20 14:00 72 23 106/60 (75) 94 NIV Bilevel 70.00 05/02/20 13:00 68 21 106/56 (73) 95 NIV Bilevel 70.00 05/02/20 12:44 63 05/02/20 12:35 96 NIV Bilevel 70 05/02/20 12:12 35.8 05/02/20 12:00 67 17 124/65 (84) 92 NIV Bilevel 70.00 05/02/20 11:00 72 25 114/59 (77) 93 NIV Bilevel 70.00 05/02/20 10:49 69 29 96 70.00 05/02/20 10:00 77 25 100/90 (93) 94 NIV Bilevel 70.00 05/02/20 09:00 91 31 133/71 (91) NIV Bilevel 70.00 05/02/20 08:45 96 NIV Bilevel 70 05/02/20 08:00 71 24 135/74 (94) 94 NIV Bilevel 70.00 05/02/20 07:34 92 Vapotherm 40.00 100 05/02/20 07:28 71 25 94 70.00 05/02/20 07:00 67 22 135/74 (94) 92 NIV Bilevel 70.00 05/02/20 06:50 76 05/02/20 06:12 60 16 129/69 (89) 98 NIV Bilevel 70.00 05/02/20 06:09 NIV Bilevel 70.00 05/02/20 06:00 60 16 129/69 (89) 98 NIV Bilevel 70.00 05/02/20 05:00 63 27 133/69 (90) 94 NIV Bilevel 70.00 I & O 05/03/20 07:00 Intake Total 890 ml Output Total 2800 ml Balance -1910 ml Height & Weight Height: '" Weight: lbs. oz. kg; 27.34 BMI Method: General Appearance: No Apparent Distress, WD/WN HEENT: PERRL/EOMI, Moist Mucous Membranes; No Scleral Icterus (L), No Scleral Icterus (R) Neck: Normal Inspection, Supple Respiratory: Decreased Breath Sounds Cardiovascular: Regular Rate, Rhythm, No Murmur Capillary Refill: Less Than 3 Seconds Extremity: Normal Capillary Refill, No Calf Tenderness, No Pedal Edema Neurologic/Psychiatric: Alert, Oriented x3 Skin: Normal Color, Warm/Dry Results Lab Laboratory Tests 05/02/20 00:56 05/03/20 03:20 Assessment/Plan Assessment/Plan COVID19- Dx: 04/19 Decadron-- 20mg IV daily -Lasix x 1 40mg - BiPAP Remdesivir s/p convalescent plasma x 2 units Oxygen CXR reviewed -Awake proning - bilateral LE US r/o DVT- are negative Lovenox theraputic dosing. Pneumonia - worsening leukocytosis - Vanco and cefepime -If MRSA swab returns negative will D/C Vanco -Siddiqui cultures are pending Probable PE -Full dose Lovenox BELTRAN GÓMEZ DO May 03, 2020 04:54
[2020-05-03] MEDS ORDERED: FUROSEMIDE 40 MG/4 ML INJ (LASIX) IVP ONE (05:00)
[2020-05-03] MEDS: KCL 20 MEQ TAB (K-DUR) PO SCH (05:06)
[2020-05-03] MEDS: MAGNESIUM 1 GM/100 ML IVPB 100 ML IV SCH (05:07)
[2020-05-03] MEDS: POTASSIUM CL 10MEQ/50ML IVPB 50 ML IV SCH (05:07)
[2020-05-03] MEDS: dexAMETHasone INJECTION 20 MG in NS (IVPB) 50 ML IV SCH (08:28)
[2020-05-03] MEDS: DOCUSATE SODIUM 100 MG (COLACE) CAP PO SCH ×2 (08:28→20:16)
[2020-05-03] MEDS: PANTOPRAZOLE 40 MG (PROTONIX) VIAL IV SCH (08:28)
[2020-05-03] MEDS: ENOXAPARIN 80 MG/0.8 ML (LOVENOX) SYR SC SCH ×2 (08:28→20:16)
[2020-05-03] MEDS: BENZONATATE 100 MG (TESSALON) CAPSULE PO SCH ×3 (08:28→20:16)
[2020-05-03] MEDS: ADVAIR HFA 115/21 MCG INHALER 8 GM IH SCH ×2 (08:39→18:40)
[2020-05-03] MEDS: RT-ALBUTEROL INHALER HFA (VENTOLIN HFA) 18 GM IH PRN (08:40)
--- NOTE | 2020-05-03 10:45 | NUR ---
pt positioned self into prone position.
[2020-05-03] MEDS: MONTELUKAST 10 MG (SINGULAIR) TAB PO SCH (20:16)
[2020-05-03] MEDS: ALPRAZolam 0.25 MG (XANAX) TAB PO PRN (23:38)
[2020-05-04] VITALS (23 sets, daily range): BP systolic 92–156; BP diastolic 56–93
[2020-05-04] MEDS: RT-ALBUTEROL INHALER HFA (VENTOLIN HFA) 18 GM IH SCH ×6 (02:37→21:40)
[2020-05-04 03:16] LABS: BASOPHILS % (AUTO) 0 % (0-10); EOSINOPHILS % (AUTO) 0 % (0-10); HEMATOCRIT 43 % (40-54); HEMOGLOBIN 14.9 g/dL (13.3-17.7); LYMPHOCYTES # (AUTO) 0.6 10^3/uL (1.0-4.0); LYMPHOCYTES % (AUTO) 3 % (12-44); MEAN CORPUSCULAR HEMOGLOBIN 32 pg (25-34); MEAN CORPUSCULAR HGB CONC 35 g/dL (32-36); MEAN CORPUSCULAR VOLUME 92 fL (80-99); MEAN PLATELET VOLUME 10.7 fL (9.0-12.2); MONOCYTES # (AUTO) 0.6 10^3/uL (0.0-1.0); MONOCYTES % (AUTO) 3 % (0-12); NEUTROPHILS # (AUTO) 16.1 10^3/uL (1.8-7.8); NEUTROPHILS % (AUTO) 90 % (42-75); PLATELET COUNT 298 10^3/uL (130-400); WHITE BLOOD COUNT 17.8 10^3/uL (4.3-11.0)
[2020-05-04 03:17] LABS: ABG BASE EXCESS 3.2 MMOL/L (-2.5-2.5); ABG OXYGEN SATURATION 93 % (94-100); ABG PCO2 36 MMHG (35-45); ABG PH 7.49 (7.37-7.43); ABG PO2 69 MMHG (79-93); ABG TCO2 27.9 MMOL/L (21.0-31.0)
[2020-05-04 03:20] LABS: ALLENS TEST ART LINE; INSPIRED O2 30%; PATIENT TEMP 36.2; VENTILATOR NO
[2020-05-04 03:27] LABS: CHLORIDE 101 MMOL/L (98-107); POTASSIUM 4.2 MMOL/L (3.6-5.0); SODIUM 133 MMOL/L (135-145)
[2020-05-04 03:29] LABS: CALCIUM 8.1 MG/DL (8.5-10.1); GLUCOSE 128 MG/DL (70-105)
[2020-05-04 03:31] LABS: CARBON DIOXIDE 23 MMOL/L (21-32)
[2020-05-04 03:33] LABS: CREATININE SERUM 0.71 MG/DL (0.60-1.30); GFR ESTIMATED > 60; PHOSPHORUS 3.3 MG/DL (2.3-4.7)
[2020-05-04 03:34] LABS: BUN/CREATININE RATIO 31
--- NOTE | 2020-05-04 04:39 | Pulmonary Progress Note ---
Subjective Time Seen by a Provider: 04:37 Subjective/Events-last exam Pt appears to be doing better. Sepsis Event Evaluation Height, Weight, BMI Height: '" Weight: lbs. oz. kg; 27.34 BMI Method: Exam Exam Vital Signs Date Time Temp Pulse Resp B/P (MAP) Pulse Ox O2 Delivery O2 Flow Rate FiO2 05/04/20 04:00 NIV Bilevel 30 05/04/20 04:00 67 154/79 (104) 94 NIV Bilevel 35.00 05/04/20 03:00 58 153/77 (102) 96 NIV Bilevel 35.00 05/04/20 02:38 70 23 100 35.00 05/04/20 02:00 64 137/72 (93) 98 NIV Bilevel 35.00 05/04/20 02:00 36.2 05/04/20 01:00 72 21 140/86 (104) 94 NIV Bilevel 35.00 05/04/20 01:00 62 05/04/20 00:30 NIV Bilevel 45.00 05/04/20 00:00 64 155/80 (105) 92 Vapotherm 40.00 70.00 05/03/20 23:59 NIV Bilevel 45 05/03/20 23:00 73 136/76 (96) 97 Vapotherm 40.00 70.00 05/03/20 22:23 Vapotherm 40.00 70.00 05/03/20 22:15 93 Vapotherm 40.00 70 05/03/20 22:00 80 139/75 (96) 91 Vapotherm 40.00 65.00 05/03/20 21:00 77 129/68 (88) 89 Vapotherm 40.00 65.00 05/03/20 20:00 65 Vapotherm 40 05/03/20 20:00 71 21 107/80 (89) 90 Vapotherm 40.00 65.00 05/03/20 20:00 37.0 05/03/20 19:00 78 05/03/20 19:00 80 151/80 (103) 92 Vapotherm 40.00 65.00 05/03/20 18:40 98 Vapotherm 40.00 65 05/03/20 18:00 77 144/74 (97) 96 Vapotherm 40.00 65.00 05/03/20 17:00 80 32 163/87 (112) 98 Vapotherm 40.00 65.00 05/03/20 16:00 66 29 142/73 (96) 98 Vapotherm 40.00 65.00 05/03/20 15:50 65 Vapotherm 40 05/03/20 15:34 35.8 05/03/20 15:00 135/43 (73) 96 Vapotherm 40.00 65.00 05/03/20 14:51 93 Vapotherm 40.00 65 05/03/20 14:00 73 94/68 (77) 100 Vapotherm 40.00 65.00 05/03/20 13:08 75 05/03/20 13:00 92 19 132/59 (83) 96 Vapotherm 40.00 65.00 05/03/20 12:28 65 Vapotherm 40 05/03/20 12:06 35.3 05/03/20 12:00 78 15 123/65 (84) 94 Vapotherm 40.00 65.00 05/03/20 11:00 78 30 102/50 (67) 80 Vapotherm 40.00 65.00 05/03/20 10:57 Vapotherm 40.00 65.00 05/03/20 10:00 77 29 120/61 (80) 80 Vapotherm 40.00 85.00 05/03/20 09:00 91 9 144/78 (100) 94 Vapotherm 40.00 85.00 05/03/20 08:43 96 Vapotherm 40.00 65 05/03/20 08:40 96 Vapotherm 40.00 65 05/03/20 08:38 35.7 05/03/20 08:00 65 Vapotherm 40 05/03/20 08:00 63 27 85/68 (74) 97 Vapotherm 40.00 85.00 05/03/20 07:00 68 46 136/77 (96) 94 Vapotherm 40.00 85.00 05/03/20 07:00 61 05/03/20 06:00 60 21 129/66 (87) 98 Vapotherm 40.00 85.00 05/03/20 05:00 69 20 132/68 (89) 96 Vapotherm 40.00 85.00 I & O 05/04/20 07:00 Intake Total 1907.0 ml Output Total 3050 ml Balance -1143.0 ml Height & Weight Height: '" Weight: lbs. oz. kg; 27.34 BMI Method: General Appearance: No Apparent Distress, WD/WN HEENT: PERRL/EOMI, Moist Mucous Membranes; No Scleral Icterus (L), No Scleral Icterus (R) Neck: Normal Inspection, Supple Respiratory: Decreased Breath Sounds Cardiovascular: Regular Rate, Rhythm, No Murmur Capillary Refill: Less Than 3 Seconds Extremity: Normal Capillary Refill, No Calf Tenderness, No Pedal Edema Neurologic/Psychiatric: Alert, Oriented x3 Skin: Normal Color, Warm/Dry Results Lab Laboratory Tests 05/03/20 03:20 05/04/20 03:00 Assessment/Plan Assessment/Plan COVID19- Dx: 04/19 Decadron-- 20mg IV daily - BiPAP PRN and QHS Remdesivir s/p convalescent plasma x 2 units Oxygen CXR reviewed -Awake proning - bilateral LE US r/o DVT- are negative Lovenox theraputic dosing. Pneumonia - worsening leukocytosis - Vanco and cefepime -If MRSA swab returns negative will D/C Vanco -Siddiqui cultures are pending Probable PE -Full dose Lovenox BELTRAN GÓMEZ DO May 04, 2020 04:39
[2020-05-04] MEDS: CEFEPIME INJECTION 1,000 MG in WATER (STERILE) FOR INJECTION 10 ML IV SCH ×4 (04:51→23:44)
[2020-05-04] MEDS: KCL 20 MEQ TAB (K-DUR) PO SCH (04:51)
[2020-05-04] MEDS: MAGNESIUM 1 GM/100 ML IVPB 100 ML IV SCH (04:51)
[2020-05-04] MEDS: POTASSIUM CL 10MEQ/50ML IVPB 50 ML IV SCH (04:51)
[2020-05-04] MEDS: ADVAIR HFA 115/21 MCG INHALER 8 GM IH SCH ×2 (06:50→18:45)
[2020-05-04] MEDS: dexAMETHasone INJECTION 20 MG in NS (IVPB) 50 ML IV SCH (07:34)
[2020-05-04] MEDS: VANCOMYCIN 1250 MG/NS 250 ML IVPB IV SCH ×6 (07:34→23:44)
[2020-05-04] MEDS: BENZONATATE 100 MG (TESSALON) CAPSULE PO SCH ×3 (07:37→20:47)
[2020-05-04] MEDS: PANTOPRAZOLE 40 MG (PROTONIX) VIAL IV SCH (07:37)
[2020-05-04] MEDS: DOCUSATE SODIUM 100 MG (COLACE) CAP PO SCH ×2 (07:38→20:47)
[2020-05-04] MEDS: ENOXAPARIN 80 MG/0.8 ML (LOVENOX) SYR SC SCH ×2 (07:38→20:47)
[2020-05-04] MEDS ORDERED: TROUGH ORDER-PHARMACY XX ONE (15:00)
--- NOTE | 2020-05-04 17:53 | NUR ---
VANCO TROUGH 14, CONTINUE CURRENT REGIMEN
[2020-05-04] MEDS: MONTELUKAST 10 MG (SINGULAIR) TAB PO SCH (20:47)
[2020-05-04] MEDS: ALPRAZolam 0.25 MG (XANAX) TAB PO PRN (20:59)
[2020-05-04] MEDS: morphine INJ 4 MG/ML 1 ML (VIAL/SYRINGE) IVP PRN (21:00)
[2020-05-05] VITALS (24 sets, daily range): BP systolic 96–166; BP diastolic 61–105
[2020-05-05] MEDS: RT-ALBUTEROL INHALER HFA (VENTOLIN HFA) 18 GM IH SCH ×6 (02:01→22:29)
[2020-05-05] MEDS: diphenhydrAMINE 25 MG TAB (BENADRYL) PO PRN ×2 (02:41→22:45)
[2020-05-05 04:18] LABS: BUN/CREATININE RATIO 21; CALCIUM 8.4 MG/DL (8.5-10.1); CARBON DIOXIDE 22 MMOL/L (21-32); CHLORIDE 101 MMOL/L (98-107); CREATININE SERUM 0.75 MG/DL (0.60-1.30); GFR ESTIMATED > 60; GLUCOSE 104 MG/DL (70-105); MAGNESIUM 2.1 MG/DL (1.6-2.4); PHOSPHORUS 3.9 MG/DL (2.3-4.7); POTASSIUM 4.7 MMOL/L (3.6-5.0); SODIUM 135 MMOL/L (135-145)
[2020-05-05] MEDS: MAGNESIUM 1 GM/100 ML IVPB 100 ML IV SCH (04:35)
[2020-05-05] MEDS: POTASSIUM CL 10MEQ/50ML IVPB 50 ML IV SCH (04:35)
[2020-05-05] MEDS: KCL 20 MEQ TAB (K-DUR) PO SCH (04:35)
[2020-05-05] MEDS: CEFEPIME INJECTION 1,000 MG in WATER (STERILE) FOR INJECTION 10 ML IV SCH ×4 (05:48→22:45)
[2020-05-05] MEDS: ADVAIR HFA 115/21 MCG INHALER 8 GM IH SCH ×2 (06:40→19:22)
[2020-05-05] MEDS: VANCOMYCIN 1250 MG/NS 250 ML IVPB IV SCH ×2 (08:28)
[2020-05-05] MEDS: PANTOPRAZOLE 40 MG (PROTONIX) VIAL IV SCH (08:28)
[2020-05-05] MEDS: dexAMETHasone INJECTION 20 MG in NS (IVPB) 50 ML IV SCH (08:28)
[2020-05-05] MEDS: DOCUSATE SODIUM 100 MG (COLACE) CAP PO SCH ×2 (08:29→20:26)
[2020-05-05] MEDS: ENOXAPARIN 80 MG/0.8 ML (LOVENOX) SYR SC SCH ×2 (08:29→20:26)
[2020-05-05] MEDS: BENZONATATE 100 MG (TESSALON) CAPSULE PO SCH ×3 (08:29→20:25)
--- NOTE | 2020-05-05 09:25 | NUR ---
Pt up to [facility] for BM. Pt c/o SOB, sat dropped into 80s on 6L high flow. Pt continued to drop his sats, placed on Vapotherm at previous settings of 20L 50%. RT called. When RT arrive, Pt sat decreased. Pt sat decreased into 60s et then began coming up. Pt transferred back to bed. Sat back into low 90s after approx 20min. E-ICU doc notified
--- NOTE | 2020-05-05 11:07 | Progress Note - Hospitalist ---
Subjective HPI/CC On Admission Date Seen by Provider: May 05, 2020 Time Seen by Provider: 10:05 Pt is a 59yoCM who was admitted due to hypoxia from COVID19. He states his symptoms started about 1 week ago and he was tested for COVID19 at [place] and was called and told he was positive. He has continued to cough and not feel well with increasing shortness of breath prompting him to seek evaluation in the ER. He was found to be hypoxic there and CTA was done and was negative. He was transferred here for further evaluation. He states the cough is his biggest symptom but he is also has lost his taste. Subjective/Events-last exam he is feeling improved. He is feeling short of breath earlier but is better now . He denies any fevers. He says his cough is improved. He has been eating and drinking. He has no other complaints or concerns. Objective Exam Vital Signs Vital Signs Date Time Temp Pulse Resp B/P (MAP) Pulse Ox O2 Delivery O2 Flow Rate FiO2 05/05/20 10:07 71 117/74 (88) 91 Vapotherm 20.00 50.00 05/05/20 09:22 70 05/05/20 08:28 36.3 05/04/20 12:00 Capillary Refill : Less Than 3 Seconds General Appearance: No Apparent Distress, WD/WN Respiratory: No Respiratory Distress, Decreased Breath Sounds, Other (wearing Vapotherm) Cardiovascular: Regular Rate, Rhythm, No Edema, No Murmur Gastrointestinal: Normal Bowel Sounds, Non Tender, Soft Extremity: Normal Inspection, Non Tender, No Pedal Edema Neurologic/Psychiatric: Alert, Oriented x3, No Motor/Sensory Deficits, Normal Mood/Affect Skin: Normal Color, Warm/Dry Results/Procedures Lab Laboratory Tests 05/05/20 03:35 Patient resulted labs reviewed. Assessment/Plan Assessment and Plan Assess & Plan/Chief Complaint acute respiratory failure due to COVID-19 elevated d-dimer possible pulmonary embolism possible pneumonia debility decrease Decadron s/p Remdesivir s/p convalescent plasma 2 Continue Vapotherm, wean as tolerated Proning as tolerated therapeutic dose Lovenox procalcitonin negative 3 Discontinue vancomycin Repeat procalcitonin Continue cefepime, likely discontinue tomorrow consult PT/OT Diagnosis/Problems Diagnosis/Problems (1) Acute respiratory failure due to COVID-19 Status: Acute (2) Elevated d-dimer Status: Acute (3) Pneumonia Status: Acute (4) Debility Status: Acute Clinical Quality Measures DVT/VTE Risk/Contraindication: Risk Factor Score Per Nursin RFS Level Per Nursing on Admit: 2=Moderate HAIR CONLEY MD May 05, 2020 11:07
--- NOTE | 2020-05-05 11:27 | Occupational Therapy Eval ---
OT Evaluation-General/PLF Medical Diagnosis Admission Date Apr 24, 2020 at 13:04 Medical Diagnosis: COVID+ Onset Date: Apr 19, 2020 Therapy Diagnosis Therapy Diagnosis: weakness Precautions Precautions/Isolations: Airborne Isolation Referral Physician: Jose Allen Reason: Evaluation/Treatment Social History Current Living Status: Spouse ADL-Prior Level of Function SCALE: Activities may be completed with or without assistive devices. 4-Zvnyawvweb-lzmkgso completes the activity by him/herself with no assistance from a helper. 5-Set-up or Clean-up Assistance-helper sets up or cleans up; patient completes activity. [place] assists only prior to or following the activity. 4-Supervision or Touching Assistance-helper provides verbal cues and/or touching/steadying and/or contact guard assistance as patient completes activity. Assistance may be provided throughout the activity or intermittently. 3-Partial/Moderate Assistance-helper does LESS THAN HALF the effort. [place] lifts, holds or supports trunk or limbs, but provides less than half the effort. 2-Substantial/Maximal Assistance-helper does MORE THAN HALF the effort. [place] lifts or holds trunk or limbs and provides more than half the effort. 1-Utlivtecx-pgxwmn does ALL the effort. Patient does none of the effort to complete the activity. Or, the assistance of 2 or more helpers is required for the patient to complete the activity. If activity was not attempted, code reason: 7-Patient Refused. 9-Not Applicable-not attempted and the patient did not perform the activity before the current illness, exacerbation or injury. 10-Not Attempted due to Environmental Limitations-(lack of equipment, weather restraints, etc.). 88-Not Attempted due to Medical Conditions or Safety Concerns. ADL PLOF Comments Pt reports being independent with all ADLs and functional mobility at [facility], no AE/AD. He was driving, working, fishing/hunting, and doing all activities he desired without difficulty. Pt states he has a walk in shower and a tub/shower, with a shower chair. Self Care: Independent Functional Cognition: Independent DME/Equipment: Shower, Tub/Shower Drive Self: Yes OT Current Status Subjective Pt laying in bed post PT tx. Pt indicates he is fatigued, but agreeable to OT evaluation. Mental Status/Objective Patient Orientation: Person, Place, Time, Situation Current Glasses/Contacts: Yes Upper Extremity ROM WFL Upper Extremity Coordination WFL Upper Extremity Sensation Pt did not report any tingling/numbness Upper Extremity Strength 3+/5 ADL-Treatment Eating (QC): 6 (Pt indicates no difficulty with feeding. He reports being able to open containers, cut food, and bring food/drink to mouth.) On/Off Footwear (QC): 6 (Pt able to don/doff gripper socks at bed level.) Other Treatments Pt laying in bed, OT educated pt on purpose/benefits of OT, he verbalized understanding. Pt then provided information about PLOF and home set up, and part icipated in UE screen. Pt reports he feels weaker and becomes SOB more easily with tasks, especially when up on his feet. Pt just finished with PT, declining further OOB activities at this time. Pt agreeable to doffing/donning gripper socks at bed level, demo'ing independence. Pt also reports independent with feeding. OT educated pt on energy conservation techniques, including sitting down to shower and taking rest breaks as needed throughout the day. OT educated pt on OT POC while he is in the hospital with focus on increasing UE strength/endurance as well as education on energy conservation principles in order to increase independence with functional transfers, ADLs, and functional task, pt in agreement. Post OT tx, pt laying in bed, call light in reach and all needs met. Education OT Patient Education: Correct positioning, Energy conservation, Modified ADL techniques, Progress toward Goal/Update tx plan, Purpose of tx/functional activities Teaching Recipient: Patient Teaching Methods: Discussion Response to Teaching: Verbalize Understanding OT Penitentiary Goals Boat Hand Goals Time Frame: May 12, 2020 Eating (QC): 6 Oral Hygiene (QC): 6 Toileting Hygiene (QC): 6 Shower/Bathe Self (QC): 6 Upper Body Dressing (QC): 6 Lower Body Dressing (QC): 6 On/Off Footwear (QC): 6 Additional Goals: 1-Demonstrate ADL Tasks, 2-Verbalize Understanding, 3- ImproveStrength/Maxwell 1=Demonstrate adherence to instructed precautions during ADL tasks. 2=Patient will verbalize/demonstrate understanding of assistive devices/modifications for ADL. 3=Patient will improve strength/tolerance for activity to enable patient to perform ADL's. OT Education/Plan Problem List/Assessment Assessment: Decreased Activ Tolerance, Decreased UE Strength Pt would benefit from skilled OT with focus on increasing UE strength/endurance as well as education on energy conservation principles in order to increase independence with functional transfers, ADLs, and functional tasks. Discharge Recommendations Plan/Recommendations: Continue POC Therapy Discharge Recommendati: Home & Family Treatment Plan/Plan of Care Treatment,Training & Education: Yes Patient would benefit from OT for education, treatment and training to promote independence in ADL's, mobility, safety and/or upper extremity function for ADL's. Plan of Care: ADL Retraining, Functional Mobility, UE Funct Exercise/Act Treatment Duration: May 12, 2020 Frequency: 5 times per week Estimated Hrs Per Day: .25 hour per day Rehab Potential: Good Time/GCodes Start Time: 11:08 Stop Time: 11:16 Total Time Billed (hr/min): 8 Billed Treatment Time 1, JOSEFA GONZALEZ OT May 05, 2020 11:27
--- NOTE | 2020-05-05 12:56 | Physical Therapy Evaluation ---
PT Evaluation-General Medical Diagnosis Admission Date Apr 24, 2020 at 13:04 Medical Diagnosis: COVID+ Onset Date: Apr 19, 2020 Therapy Diagnosis Therapy Diagnosis: weakness Precautions Precautions/Isolations: Airborne Isolation Weight Bear Status Full Weight Bearing Full Weight Bearing Referral Physician: Jose Reason for Referral: Evaluation/Treatment, Strengthening Medical History Current History Pt was a fully independent 59 y/o male. No significant medical history. He has been hospitalized with COVID 19 for approximately 3 weeks and has progressive loss of strength, endurance, and mobility. Social History Current Living Status: Spouse Prior Prior Level of Function SCALE: Activities may be completed with or without assistive devices. 9-Aqrdhzuaya-xcgyvjr completes the activity by him/herself with no assistance from a helper. 5-Set-up or Clean-up Assistance-helper sets up or cleans up; patient completes activity. [place] assists only prior to or following the activity. 4-Supervision or Touching Assistance-helper provides verbal cues and/or touching/steadying and/or contact guard assistance as patient completes activity. Assistance may be provided throughout the activity or intermittently. 3-Partial/Moderate Assistance-helper does LESS THAN HALF the effort. [place] lifts, holds or supports trunk or limbs, but provides less than half the effort. 2-Substantial/Maximal Assistance-helper does MORE THAN HALF the effort. [place] lifts or holds trunk or limbs and provides more than half the effort. 3-Rqbfgqlqf-cauqft does ALL the effort. Patient does none of the effort to complete the activity. Or, the assistance of 2 or more helpers is required for the patient to complete the activity. If activity was not attempted, code reason: 7-Patient Refused. 9-Not Applicable-not attempted and the patient did not perform the activity before the current illness, exacerbation or injury. 10-Not Attempted due to Environmental Limitations-(lack of equipment, weather restraints, etc.). 88-Not Attempted due to Medical Conditions or Safety Concerns. Bed Mobility: 6 Transfers (B,C,W/C): 6 Gait: 6 Stairs: 6 Indoor Mobility (Ambulation): Independent Stairs: Independent Prior Devices Use: None PT Evaluation-Current Subjective Pt reports his primary limitation is shortness of breath. Objective Patient Orientation: Normal For Age Attachments: Oxygen, Mazariegos Catheter, IV ROM/Strength ROM Lower Extremities Pt has not contracture but does have tightness in the hips and gastrocs from prolonged time in bed. Strength Lower Extremities gross 4/5 Sensory Vision: Functional Hearing: Functional Sensation Right Upper Extremit: Intact Sensation Left Upper Extremity: Intact Sensation Right Lower Extremit: Intact Sensation Left Lower Extremity: Intact Transfers Roll Left to Right (QC): 5 Sit to Lying (QC): 5 Lying to Sitting/Side of Bed(Q: 5 Sit to Stand (QC): 5 Chair/Oka-wi-Ptdzn Xfer(QC): 5 stood with supervision to contact guard assist with only minor hand holding Gait Walk 10 feet (QC): 4 Gait Assistive Device: Handheld Assist Balance Sitting Static: Good Sitting Dynamic: Good Standing Static: Fair Standing Dynamic: Fair Assessment/Needs Pt has appropriate motor planning. He has weakness from prolonged immobility and shortness of breath. His standing balance is fair due to weakness and limited time upright over the past 3 weeks. He will benefit from PT to progress to (I) gait and improved strength for functional mobility. Rehab Potential: Good PT Penitentiary Goals Penitentiary Goals PT Penitentiary Goals Time Frame: May 18, 2020 Roll Left & Right (QC): 6 Sit to Lying (QC): 6 Lying-Sitting on Side/Bed(QC): 6 Sit to Stand (QC): 6 Chair/Hjg-at-Cnmts Xfer(QC): 6 Does the Patient Walk: Yes Walk 150 ft (QC): 6 PT Plan Problem List Problem List: Activity Tolerance, Balance, Gait Treatment/Plan Treatment Plan: Continue Plan of Care Treatment Plan: Bed Mobility, Functional Activity Maxwell, Functional Strength, Gait, Safety, Therapeutic Exercise Treatment Duration: May 18, 2020 Frequency: 6 times per week Estimated Hrs Per Day: .25 hour per day Safety Risks/Education Patient Education: Issued Written HEP Teaching Recipient: Health Care Proxy Discharge Recommendations Barriers to Progress COVID isolation Time/GCodes Time In: 1030 Time Out: 1100 Total Billed Treatment Time: 30 Total Billed Treatment visit, evaluation high complexity 30 minutes SHERIE VOGEL PT May 05, 2020 12:56
[2020-05-05] MEDS: MONTELUKAST 10 MG (SINGULAIR) TAB PO SCH (20:25)
[2020-05-06] VITALS (15 sets, daily range): BP systolic 117–149; BP diastolic 72–105
[2020-05-06] MEDS: RT-ALBUTEROL INHALER HFA (VENTOLIN HFA) 18 GM IH SCH ×6 (02:15→23:02)
[2020-05-06 03:41] LABS: BASOPHILS # (AUTO) 0.1 10^3/uL (0.0-0.1); BASOPHILS % (AUTO) 0 % (0-10); EOSINOPHILS % (AUTO) 0 % (0-10); HEMATOCRIT 47 % (40-54); HEMOGLOBIN 15.9 g/dL (13.3-17.7); LYMPHOCYTES # (AUTO) 0.9 10^3/uL (1.0-4.0); LYMPHOCYTES % (AUTO) 5 % (12-44); MEAN CORPUSCULAR HEMOGLOBIN 31 pg (25-34); MEAN CORPUSCULAR HGB CONC 34 g/dL (32-36); MEAN CORPUSCULAR VOLUME 92 fL (80-99); MEAN PLATELET VOLUME 10.3 fL (9.0-12.2); MONOCYTES # (AUTO) 0.9 10^3/uL (0.0-1.0); MONOCYTES % (AUTO) 5 % (0-12); NEUTROPHILS # (AUTO) 16.1 10^3/uL (1.8-7.8); NEUTROPHILS % (AUTO) 85 % (42-75); PLATELET COUNT 284 10^3/uL (130-400)
[2020-05-06 03:42] LABS: CHLORIDE 101 MMOL/L (98-107); POTASSIUM 4.5 MMOL/L (3.6-5.0); SODIUM 133 MMOL/L (135-145)
[2020-05-06 03:43] LABS: CALCIUM 8.5 MG/DL (8.5-10.1)
[2020-05-06 03:44] LABS: GLUCOSE 107 MG/DL (70-105)
[2020-05-06 03:45] LABS: CARBON DIOXIDE 22 MMOL/L (21-32)
[2020-05-06 03:47] LABS: PHOSPHORUS 4.1 MG/DL (2.3-4.7)
[2020-05-06 03:48] LABS: CREATININE SERUM 0.71 MG/DL (0.60-1.30); GFR ESTIMATED > 60
[2020-05-06 03:49] LABS: BUN/CREATININE RATIO 30
[2020-05-06 03:50] LABS: MAGNESIUM 2.1 MG/DL (1.6-2.4)
[2020-05-06] MEDS: POTASSIUM CL 10MEQ/50ML IVPB 50 ML IV SCH (05:03)
[2020-05-06] MEDS: KCL 20 MEQ TAB (K-DUR) PO SCH (05:03)
[2020-05-06] MEDS: MAGNESIUM 1 GM/100 ML IVPB 100 ML IV SCH (05:03)
[2020-05-06] MEDS: CEFEPIME INJECTION 1,000 MG in WATER (STERILE) FOR INJECTION 10 ML IV SCH (05:25)
[2020-05-06] MEDS: ADVAIR HFA 115/21 MCG INHALER 8 GM IH SCH ×2 (07:11→20:09)
[2020-05-06] MEDS ORDERED: dexAMETHasone INJECTION 15 MG in NS (IVPB) 50 ML IV SCH (09:00)
[2020-05-06] MEDS: BENZONATATE 100 MG (TESSALON) CAPSULE PO SCH ×3 (09:18→20:27)
[2020-05-06] MEDS: PANTOPRAZOLE 40 MG (PROTONIX) VIAL IV SCH (09:18)
[2020-05-06] MEDS: DOCUSATE SODIUM 100 MG (COLACE) CAP PO SCH ×2 (09:18→20:27)
[2020-05-06] MEDS: ENOXAPARIN 80 MG/0.8 ML (LOVENOX) SYR SC SCH ×2 (09:19→20:27)
--- NOTE | 2020-05-06 12:45 | Progress Note - Hospitalist ---
Subjective HPI/CC On Admission Date Seen by Provider: May 06, 2020 Time Seen by Provider: 09:30 Pt is a 59yoCM who was admitted due to hypoxia from COVID19. He states his symptoms started about 1 week ago and he was tested for COVID19 at [place] and was called and told he was positive. He has continued to cough and not feel well with increasing shortness of breath prompting him to seek evaluation in the ER. He was found to be hypoxic there and CTA was done and was negative. He was transferred here for further evaluation. He states the cough is his biggest symptom but he is also has lost his taste. Subjective/Events-last exam he is feeling well this morning. His breathing is improving. He has no complai nts or concerns. Objective Exam Vital Signs Vital Signs Date Time Temp Pulse Resp B/P (MAP) Pulse Ox O2 Delivery O2 Flow Rate FiO2 05/06/20 10:37 94 High Flow N/C 3.00 05/06/20 10:00 72 33 134/87 (103) 05/06/20 05:30 36.9 05/05/20 12:00 50 Capillary Refill : Less Than 3 Seconds General Appearance: No Apparent Distress, WD/WN Respiratory: Lungs Clear, Normal Breath Sounds, No Respiratory Distress Cardiovascular: Regular Rate, Rhythm, No Edema, No Murmur Gastrointestinal: Normal Bowel Sounds, Non Tender, Soft Extremity: Normal Inspection, Non Tender, No Pedal Edema Neurologic/Psychiatric: Alert, Oriented x3, No Motor/Sensory Deficits, Normal Mood/Affect Skin: Normal Color, Warm/Dry Results/Procedures Lab Laboratory Tests 05/06/20 03:20 Patient resulted labs reviewed. Imaging: Reviewed Imaging Report Assessment/Plan Assessment and Plan Assess & Plan/Chief Complaint acute respiratory failure due to COVID-19 elevated d-dimer possible pulmonary embolism debility decreasing Decadron s/p Remdesivir s/p convalescent plasma 2 Continue supplemental oxygen as needed, weaning as able Proning as tolerated therapeutic dose Lovenox procalcitonin negative 4 Discontinue Cefepime PT/OT transfer to medical floor today Diagnosis/Problems Diagnosis/Problems (1) Acute respiratory failure due to COVID-19 Status: Acute (2) Elevated d-dimer Status: Acute (3) Pneumonia Status: Acute (4) Debility Status: Acute Clinical Quality Measures DVT/VTE Risk/Contraindication: Risk Factor Score Per Nursin RFS Level Per Nursing on Admit: 2=Moderate HAIR CONLEY MD May 06, 2020 12:45
--- NOTE | 2020-05-06 13:00 | NUR ---
RECEIVED REPORT FROM [facility], PATIENT ALERT, O2 ON PER NC AT 3 LITERS HIGH FLOW TUBING, CALL LIGHT WITHIN REACH, DENIES PAIN OR SOB, FREQUENT NON PRODUCTIVE COUGH, ORIENTED TO ROOM, CONTINUE ON ISOLATION FOR COVID.
[2020-05-06] MEDS: PROMETHAZINE/ CODEINE SYRUP 5 ML UDC PO PRN ×2 (15:25→20:27)
[2020-05-06] MEDS: MONTELUKAST 10 MG (SINGULAIR) TAB PO SCH (20:27)
[2020-05-07 04:50] VITALS: BP 126/77
[2020-05-07] MEDS: dexAMETHasone 6 MG TAB (DECADRON) PO SCH (06:30)
[2020-05-07 06:43] LABS: BASOPHILS # (AUTO) 0.1 10^3/uL (0.0-0.1); BASOPHILS % (AUTO) 0 % (0-10); EOSINOPHILS % (AUTO) 0 % (0-10); HEMATOCRIT 45 % (40-54); HEMOGLOBIN 15.4 g/dL (13.3-17.7); LYMPHOCYTES # (AUTO) 1.5 10^3/uL (1.0-4.0); LYMPHOCYTES % (AUTO) 9 % (12-44); MEAN CORPUSCULAR HEMOGLOBIN 31 pg (25-34); MEAN CORPUSCULAR HGB CONC 34 g/dL (32-36); MEAN CORPUSCULAR VOLUME 93 fL (80-99); MEAN PLATELET VOLUME 10.3 fL (9.0-12.2); MONOCYTES # (AUTO) 0.9 10^3/uL (0.0-1.0); MONOCYTES % (AUTO) 5 % (0-12); NEUTROPHILS # (AUTO) 13.2 10^3/uL (1.8-7.8); NEUTROPHILS % (AUTO) 79 % (42-75); PLATELET COUNT 264 10^3/uL (130-400); WHITE BLOOD COUNT 16.6 10^3/uL (4.3-11.0)
[2020-05-07 07:02] LABS: CHLORIDE 102 MMOL/L (98-107); POTASSIUM 4.4 MMOL/L (3.6-5.0); SODIUM 134 MMOL/L (135-145)
[2020-05-07 07:03] LABS: CALCIUM 8.2 MG/DL (8.5-10.1)
[2020-05-07] MEDS: POTASSIUM CL 10MEQ/50ML IVPB 50 ML IV SCH (07:03)
[2020-05-07] MEDS: KCL 20 MEQ TAB (K-DUR) PO SCH (07:03)
[2020-05-07 07:04] LABS: GLUCOSE 98 MG/DL (70-105)
[2020-05-07 07:05] LABS: CARBON DIOXIDE 22 MMOL/L (21-32)
[2020-05-07 07:07] LABS: PHOSPHORUS 3.9 MG/DL (2.3-4.7)
[2020-05-07 07:08] LABS: BUN/CREATININE RATIO 28; CREATININE SERUM 0.75 MG/DL (0.60-1.30); GFR ESTIMATED > 60
[2020-05-07 07:10] LABS: MAGNESIUM 2.1 MG/DL (1.6-2.4)
[2020-05-07] MEDS: MAGNESIUM 1 GM/100 ML IVPB 100 ML IV SCH (07:15)
[2020-05-07 08:00] VITALS: BP 117/73
[2020-05-07] MEDS: BENZONATATE 100 MG (TESSALON) CAPSULE PO SCH ×3 (09:04→21:15)
[2020-05-07] MEDS: ENOXAPARIN 80 MG/0.8 ML (LOVENOX) SYR SC SCH ×3 (09:04→21:15)
[2020-05-07] MEDS: PANTOPRAZOLE 40 MG (PROTONIX) VIAL IV SCH (09:04)
[2020-05-07] MEDS: DOCUSATE SODIUM 100 MG (COLACE) CAP PO SCH ×2 (09:06→21:15)
--- NOTE | 2020-05-07 09:54 | Occupational Ther Daily Note ---
OT Current Status-Daily Note Subjective Pt alert, sitting in recliner. Nrsg stated that pt was having difficulty with an arterial line on L UE and wanted pt to keep that arm still. Pt agrees to therapy. No c/o pain at this time. Mental Status/Objective Patient Orientation: Person, Place, Time, Situation Attachments: IV, Oxygen ADL-Treatment Pt stated that he has been up ad cheri in room to complete toileting and bathing. Therapy Code Descriptions/Definitions Functional [place] Measure: 0=Not Assessed/NA 4=Minimal Assistance 1=Total Assistance 5=Supervision or Setup 2=Maximal Assistance 6=Modified [place] 3=Moderate Assistance 7=Complete IndependenceSCALE: Activities may be completed with or without assistive devices. 9-Gtdzncaygk-rqejtcy completes the activity by him/herself with no assistance from a helper. 5-Set-up or Clean-up Assistance-helper sets up or cleans up; patient completes activity. [place] assists only prior to or following the activity. 4-Supervision or Touching Assistance-helper provides verbal cues and/or touching/steadying and/or contact guard assistance as patient completes activity. Assistance may be provided throughout the activity or intermittently. 3-Partial/Moderate Assistance-helper does LESS THAN HALF the effort. [place] lifts, holds or supports trunk or limbs, but provides less than half the effort. 2-Substantial/Maximal Assistance-helper does MORE THAN HALF the effort. [place] lifts or holds trunk or limbs and provides more than half the effort. 0-Suukrpquz-bxeafk does ALL the effort. Patient does none of the effort to complete the activity. Or, the assistance of 2 or more helpers is required for the patient to complete the activity. If activity was not attempted, code reason: 7-Patient Refused. 9-Not Applicable-not attempted and the patient did not perform the activity before the current illness, exacerbation or injury. 10-Not Attempted due to Environmental Limitations-(lack of equipment, weather restraints, etc.). 88-Not Attempted due to Medical Conditions or Safety Concerns. Other Treatment HEP and medium resistance theraband given to pt for exercise program to increase strength and activity tolerance for daily functional tasks. Skilled instruction on technique and modifications completed. Pt demonstrated understanding of exercises by completing with minimal verbal instructions. 2 sets 10 reps of 6 exercises. After session, pt sitting in recliner with call light/phone in reach. All needs met in room. OT Slip Feeder Goals Slip Feeder Goals Time Frame: May 12, 2020 Eating (QC): 6 Oral Hygiene (QC): 6 Toileting Hygiene (QC): 6 Shower/Bathe Self (QC): 6 Upper Body Dressing (QC): 6 Lower Body Dressing (QC): 6 On/Off Footwear (QC): 6 Additional Goals: 1-Demonstrate ADL Tasks, 2-Verbalize Understanding, 3- ImproveStrength/Maxwell 1=Demonstrate adherence to instructed precautions during ADL tasks. 2=Patient will verbalize/demonstrate understanding of assistive devices/modifications for ADL. 3=Patient will improve strength/tolerance for activity to enable patient to perform ADL's. OT Education/Plan Problem List/Assessment Pt would benefit from skilled OT with focus on increasing UE strength/endurance as well as education on energy conservation principles in order to increase independence with functional transfers, ADLs, and functional tasks. Discharge Recommendations Plan/Recommendations: Continue POC Treatment Plan/Plan of Care Patient would benefit from OT for education, treatment and training to promote independence in ADL's, mobility, safety and/or upper extremity function for ADL's. Plan of Care: ADL Retraining, Functional Mobility, UE Funct Exercise/Act Treatment Duration: May 12, 2020 Frequency: 5 times per week Estimated Hrs Per Day: .25 hour per day Rehab Potential: Good Time/GCodes Start Time: 09:25 Stop Time: 09:41 Total Time Billed (hr/min): 16 Billed Treatment Time 1 visit-EX 1 (16 min) BARBARA GARCIA May 07, 2020 09:54
--- NOTE | 2020-05-07 10:00 | NUR ---
PRESSURE DRESSING TO LEFT WRIST NOTED TO HAVE FRESH BLOOD ON GAUZE. DRESSING WAS CHANGED AND NOTED TO HAVE SLOW BLEEDING. PRESSURE WAS HELD AND NEW PRESSURE DRESSING APPLIED. DR JENKINS NOTIFIED AND ORDER RECEIVED TO HOLD AM DOSE OF LOVENOX AND TO CONTINUE TO MONITOR SITE.
--- NOTE | 2020-05-07 10:30 | NUR ---
PER DR JENKINS CAN RESUME LOVENOX IF PT NO LONGER HAS BLEEDING FROM LEFT WRIST
[2020-05-07] MEDS: PROMETHAZINE/ CODEINE SYRUP 5 ML UDC PO PRN ×2 (10:34→18:38)
[2020-05-07 12:00] VITALS: BP 111/72
--- NOTE | 2020-05-07 13:01 | Progress Note - Hospitalist ---
Subjective HPI/CC On Admission Date Seen by Provider: May 07, 2020 Time Seen by Provider: 13:00 Pt is a 59yoCM who was admitted due to hypoxia from COVID19. He states his symptoms started about 1 week ago and he was tested for COVID19 at [facility] and was called and told he was positive. He has continued to cough and not feel well with increasing shortness of breath prompting him to seek evaluation in the ER. He was found to be hypoxic there and CTA was done and was negative. He was transferred here for further evaluation. He states the cough is his biggest symptom but he is also has lost his taste. Subjective/Events-last exam Pt reports feeling great. Still has dry cough. No other complaints. Hopeful for DC tomorrow. Objective Exam Vital Signs Vital Signs Date Time Temp Pulse Resp B/P (MAP) Pulse Ox O2 Delivery O2 Flow Rate FiO2 05/07/20 12:00 36.8 63 20 111/72 (85) 95 High Flow N/C 4.00 05/05/20 12:00 50 Capillary Refill : Less Than 3 Seconds General Appearance: No Apparent Distress, WD/WN Respiratory: Lungs Clear, No Accessory Muscle Use, Other (on 4lpm) Cardiovascular: Regular Rate, Rhythm, No Murmur Gastrointestinal: Normal Bowel Sounds, Non Tender, Soft Neurologic/Psychiatric: Alert, Oriented x3, Normal Mood/Affect Results/Procedures Lab Laboratory Tests 05/07/20 06:23 Patient resulted labs reviewed. Imaging: Reviewed Imaging Report Assessment/Plan Assessment and Plan Assess & Plan/Chief Complaint acute respiratory failure due to COVID-19 elevated d-dimer possible pulmonary embolism debility decreasing Decadron, will need taper at DC s/p Remdesivir s/p convalescent plasma 2 Continue supplemental oxygen as needed, weaning as able Home o2 study needed Proning as tolerated therapeutic dose Lovenox procalcitonin negative 4 PT/OT Diagnosis/Problems Diagnosis/Problems (1) Acute respiratory failure (2) COVID-19 Clinical Quality Measures DVT/VTE Risk/Contraindication: Risk Factor Score Per Nursin RFS Level Per Nursing on Admit: 2=Moderate NICHOLAS JENKINS MD May 07, 2020 13:01
--- NOTE | 2020-05-07 14:15 | NUR ---
CM/SS visited with patient for discharge planning. Plan: Patient will discharge tomorrow with a new oxygen need. DME: MICKEY/MOSES spoke with patient regarding new oxygen need. He reports that he would like this sw to call his son Abebe the Respiratory therapist to set up oxygen. CM/SS contacted Abebe, he states the preferred DME is [facility]. MICKEY/SS contacted Lev from the agency and faxed face sheet/H&P. CM/SS will fax o2 study and script tomorrow when available. The patient denied any further needs at this time. CM/SS will continue to follow.
--- NOTE | 2020-05-07 14:39 | Physical Therapy Daily Note ---
PT Daily Note-Current Subjective Patient reports he is going home tomorrow. Agrees to PT. He states he has drainage that makes him cough. Mental Status Patient Orientation: Normal For Age Attachments: Oxygen Transfers SCALE: Activities may be completed with or without assistive devices. 4-Lflyajuxzf-aschccl completes the activity by him/herself with no assistance from a helper. 5-Set-up or Clean-up Assistance-helper sets up or cleans up; patient completes activity. [place] assists only prior to or following the activity. 4-Supervision or Touching Assistance-helper provides verbal cues and/or touching/steadying and/or contact guard assistance as patient completes activity. Assistance may be provided throughout the activity or intermittently. 3-Partial/Moderate Assistance-helper does LESS THAN HALF the effort. [place] lifts, holds or supports trunk or limbs, but provides less than half the effort. 2-Substantial/Maximal Assistance-helper does MORE THAN HALF the effort. [place] lifts or holds trunk or limbs and provides more than half the effort. 1-Angwzxvys-lnimhy does ALL the effort. Patient does none of the effort to complete the activity. Or, the assistance of 2 or more helpers is required for the patient to complete the activity. If activity was not attempted, code reason: 7-Patient Refused. 9-Not Applicable-not attempted and the patient did not perform the activity before the current illness, exacerbation or injury. 10-Not Attempted due to Environmental Limitations-(lack of equipment, weather restraints, etc.). 88-Not Attempted due to Medical Conditions or Safety Concerns. Sit to Stand (QC): 6 Weight Bearing Full Weight Bearing Full Weight Bearing Gait Training Does the Patient Walk?: Yes Distance: 125' Walk 10 feet (QC): 6 Walk 50 ft with 2 Turns(QC): 6 Gait Assistive Device: None slightly unsteady with self correct Treatments PT placed mask on patient during session. Assessment Patient is currently at independent PLOF with all gross motor skills. Patient instructed to ambulate PRN in room. PT Residential Goals Office Support Specialist Goals PT Office Support Specialist Goals Time Frame: May 18, 2020 Roll Left & Right (QC): 6 Sit to Lying (QC): 6 Lying-Sitting on Side/Bed(QC): 6 Sit to Stand (QC): 6 Chair/Cpi-dd-Dunne Xfer(QC): 6 Does the Patient Walk: Yes Walk 150 ft (QC): 6 PT Plan Treatment/Plan Treatment Plan: Continue Plan of Care Treatment Plan: Bed Mobility, Functional Activity [place], Functional Strength, Gait, Safety, Therapeutic Exercise Treatment Duration: May 18, 2020 Frequency: 6 times per week Estimated Hrs Per Day: .25 hour per day Time/GCodes Time In: 1416 Time Out: 1430 Total Billed Treatment Time: 14 Total Billed Treatment 1 visit FA 14 min ABIGAIL VIVAR PT May 07, 2020 14:39
--- NOTE | 2020-05-07 15:00 | NUR ---
NO FURTHER BLEEDING NOTED TO LEFT WRIST. PRESSURE DRESSING C/D/I
[2020-05-07 16:00] VITALS: BP 140/82
[2020-05-07] MEDS: RT-ALBUTEROL INHALER HFA (VENTOLIN HFA) 18 GM IH SCH ×3 (17:09→21:17)
[2020-05-07] MEDS: ADVAIR HFA 115/21 MCG INHALER 8 GM IH SCH ×2 (17:09→18:36)
[2020-05-07] MEDS ORDERED: LORATADINE (CLARITIN) 10 MG TAB PO NR (18:15)
[2020-05-07 20:00] VITALS: BP 130/80
[2020-05-07] MEDS ORDERED: APIX5TAB PO (20:15)
[2020-05-07] MEDS ORDERED: METH4TAB10 PO (20:15)
[2020-05-07] MEDS ORDERED: FLUT12AE4 IH (20:15)
[2020-05-07] MEDS: MONTELUKAST 10 MG (SINGULAIR) TAB PO SCH (21:15)
[2020-05-07 23:59] VITALS: BP 120/80
[2020-05-08] MEDS: RT-ALBUTEROL INHALER HFA (VENTOLIN HFA) 18 GM IH SCH ×4 (02:24→14:47)
[2020-05-08 04:37] VITALS: BP 122/83
[2020-05-08] MEDS: dexAMETHasone 6 MG TAB (DECADRON) PO SCH (06:06)
[2020-05-08] MEDS: ADVAIR HFA 115/21 MCG INHALER 8 GM IH SCH (06:45)
[2020-05-08 07:20] LABS: HEMOGLOBIN 15.8 g/dL (13.3-17.7)
[2020-05-08] MEDS: POTASSIUM CL 10MEQ/50ML IVPB 50 ML IV SCH (07:47)
[2020-05-08] MEDS: MAGNESIUM 1 GM/100 ML IVPB 100 ML IV SCH (07:47)
[2020-05-08] MEDS: KCL 20 MEQ TAB (K-DUR) PO SCH (07:47)
[2020-05-08 07:50] LABS: ALANINE AMINOTRANSFERASE 118 U/L (0-55); ALBUMIN 3.3 GM/DL (3.2-4.5); ALKALINE PHOSPHATASE 61 U/L (40-136); BILIRUBIN,TOTAL 0.5 MG/DL (0.1-1.0); BUN/CREATININE RATIO 27; CALCIUM 8.5 MG/DL (8.5-10.1); CARBON DIOXIDE 23 MMOL/L (21-32); CHLORIDE 100 MMOL/L (98-107); CREATININE SERUM 0.83 MG/DL (0.60-1.30); GFR ESTIMATED > 60; GLUCOSE 96 MG/DL (70-105); POTASSIUM 4.3 MMOL/L (3.6-5.0); SODIUM 136 MMOL/L (135-145); TOTAL PROTEIN 6.1 GM/DL (6.4-8.2)
[2020-05-08 08:00] VITALS: BP 122/73
--- NOTE | 2020-05-08 08:21 | Diagnostic Imaging Report ---
EXAMINATION: Chest 1 view HISTORY: Respiratory failure, Covid positive. COMPARISON: Chest radiograph 04/26/2020. FINDINGS: Heart size and pulmonary vasculature are normal. Slightly improved patchy airspace opacities throughout both lungs. No pleural effusion or pneumothorax. The osseous structures are intact. IMPRESSION: 1. Slightly improved patchy airspace opacities within both lungs may be secondary to pulmonary edema or pneumonia. Dictated by: Dictated on workstation # [id number]
[2020-05-08] MEDS: BENZONATATE 100 MG (TESSALON) CAPSULE PO SCH ×2 (08:45→13:34)
[2020-05-08] MEDS: DOCUSATE SODIUM 100 MG (COLACE) CAP PO SCH (08:45)
[2020-05-08] MEDS: PANTOPRAZOLE 40 MG (PROTONIX) VIAL IV SCH (08:45)
[2020-05-08] MEDS: ENOXAPARIN 80 MG/0.8 ML (LOVENOX) SYR SC SCH (08:46)
[2020-05-08] MEDS ORDERED: LORATADINE (CLARITIN) 10 MG TAB PO SCH (09:00)
--- NOTE | 2020-05-08 10:23 | NUR ---
CM/MOSES finalized discharge. Plan: Patient will return home with [facility] home health and new home o2 at 2L continuous. DME: MICKEY/MOSES contacted [facility] to inform them patient is still set to discharge today. CM/SS faxed script and home o2 study. They will deliver to the hospital today. Home Health: CM/SS contacted the patient to discuss home health options. He reports that his son Abebe will be picking the agency as well. CM/SS contacted Abebe to discuss options for the [place] area. Abebe chose [facility]. CM/SS contacted agency and spoke with Zahida. She states there are no openings until the . MICKEY/MOSES moved to second choice of [facility] A referral was made for start of care tomorrow 05/09. No further needs at this time. Addendum: 05/08/20 at 1028 by MICHAEL KERN CM/SS spoke with patient regarding script for front wheeled walker. He reports he already has one at home. No need.
--- NOTE | 2020-05-08 12:11 | Discharge Summary ---
Diagnosis/Chief Complaint Date of Admission Apr 24, 2020 at 13:04 Date of Discharge Discharge Date: May 08, 2020 Admission Diagnosis Acute hypoxic respiratory failure Primary Care Discharge Diagnosis (1) Acute respiratory failure due to COVID-19 Status: Acute (2) Elevated d-dimer Status: Acute (3) Pneumonia Status: Acute (4) Debility Status: Acute Discharge Summary Procedures/Consulations Pulm- Dr Crawford Discharge Physical Exam Allergies: Coded Allergies: Penicillins (Verified Allergy, Mild, 04/24/20) Vitals & I&Os Vital Signs Date Time Temp Pulse Resp B/P (MAP) Pulse Ox O2 Delivery O2 Flow Rate FiO2 05/08/20 18:28 36.7 80 20 91 High Flow N/C 3.00 05/05/20 12:00 50 General Appearance: No Apparent Distress, WD/WN Respiratory: Lungs Clear, Other (2lpm NC) Cardiovascular: Regular Rate, Rhythm, No Murmur Gastrointestinal: Normal Bowel Sounds, Non Tender, Soft Neurologic/Psychiatric: Alert, Oriented x3, Normal Mood/Affect Hospital Course Pt is a 59yoCM who was admitted due to acute hypoxic respiratory failure due to COVID19. He had a protracted course requiring very high levels of oxygen via BiPAP and Vapotherm. Fortunately he was able to stay off the vent. He was treated with remdesivir, convalescent plasma, decadron, proning. He had a very elevated d-dimer and was unable to go for CTA so was treated with anticoagulation for presumption PE.He was ultimately able to be titrated down on oxygen. He required PT/OT due to deconditioning. Home health is to be arranged for discharge and he was discharged home in stable condition with family support as well. He was on 2lpm NC upon discharge. He is to follow up with his primary care doctor to follow up this hospital stay. Labs (last 24 hrs) Laboratory Tests 05/08/20 07:15: White Blood Count 15.0H, Red Blood Count 5.11, Hemoglobin 15.8, Hematocrit 48, Mean Corpuscular Volume 94, Mean Corpuscular Hemoglobin 31, Mean Corpuscular Hemoglobin Concent 33, Red Cell Distribution Width 13.0, Platelet Count 254, Mean Platelet Volume 10.0, Sodium Level 136, Potassium Level 4.3, Chloride Level 100, Carbon Dioxide Level 23, Anion Gap 13, Blood Urea Nitrogen 22H, Creatinine 0.83, Estimat Glomerular Filtration Rate > 60, BUN/Creatinine Ratio 27, Glucose Level 96, Calcium Level 8.5, Corrected Calcium 9.1, Magnesium Level 2.0, Total Bilirubin 0.5, Aspartate Amino Transf (AST/SGOT) 38H, Alanine Aminotransferase (ALT/SGPT) 118H, Alkaline Phosphatase 61, Total Protein 6.1L, Albumin 3.3 Patient resulted labs reviewed. Pending Labs Imaging: Reviewed Imaging Report Discussion & Recommendations Discharge Planning: >30 minutes discharge planning Discharge Home Medications: Active Scripts Active Eliquis (Apixaban) 5 Mg Tablet 5 Mg PO BID Methylprednisolone Dose Pack (Methylprednisolone) 4 Mg Tab.ds.pk 4 Mg PO UD 6 Days PER DOSE PACK INSTRUCTIONS Advair Hfa 115-21 Mcg Inhaler (Fluticasone/Salmeterol) 12 Gm Hfa.aer.ad 0 Puff IH RTBID Reported Excedrin Migraine Caplet (Aspirin/Acetaminophen/Caffeine) 1 Each Tablet 2 Each PO Q6-8HR PRN Atorvastatin Calcium 10 Mg Tablet 10 Mg PO DAILY Amlodipine Besylate 10 Mg Tablet 10 Mg PO DAILY Ventolin Hfa (Albuterol Sulfate) 18 Gm Hfa.aer.ad 2 Inh INH Q6H PRN Instructions to patient/family Please see electronic discharge instructions given to patient. Clinical Quality Measures DVT/VTE Risk/Contraindication: Risk Factor Score Per Nursin RFS Level Per Nursing on Admit: 2=Moderate NICHOLAS JENKINS MD May 08, 2020 12:11
--- NOTE | 2020-05-08 12:15 | D/C HH Face to Face Order ---
D/C Face to Face Orders Instructions for Patient [facility], Patient Instructions/FollowUp: Please continue to take your medications as written. Please follow up with your primary care doctor in the next week to follow up this hospital stay. Physician to follow Patient: Dr Nasima Mena Discharge Diet for Home: No Restrictions Patient Data-Allergies,Ht & Wt Patient Allergies: Coded Allergies: Penicillins (Verified Allergy, Mild, 04/24/20) Home Health Need/Face to Face Date of Face to Face: May 08, 2020 Clinical Findings: Generalized weakness and fatigue, Shortness of breath I have seen Pt ktqv-hy-likg: Yes Discharged To: Home Diagnosis/Conditions: COVID19 respiratory failure Patient is Homebound due to: Muscle weakness, Shortness of breath/distress Homebound Status Due to the above stated illness, injury or surgical procedure (medical condition or diagnosis) and associated clinical findings, the patient is homebound because of his/her inability to leave home except with aid of a supportive device and/or person AND leaving the home requires a considerable and taxing effort or is medically contraindicated. Pt req the following assistanc: [facility] Services Order: Nursing Services, Bundle Packer-Evaluate & Treat, Physical Therapy-Evaluate & Treat Home Health Infusion Therapy Line Start Date: Apr 30, 2020 Therapy Orders Therapy Orders: OT (must have SN or PT order), Physical Therapy Therapy Specific Orders: Eval assistive deivces, Teach enviro modifications/ safety, Gait training, Increase strength/endurance Certify Stmt I certify that this patient is under my care and that I, a nurse practitioner or a physician; a secretary administrative assistant working with me, had a face to face encounter that - meets the physician face to face encounter requirements with this patient as dated. NICHOLAS JENKINS MD May 08, 2020 12:15
--- NOTE | 2020-05-08 13:34 | NUR ---
provided education to the patient over the phone. discussed how to take the medication (twice daily) and common side effects including bruising and bleeding. I also placed a savings card in the discharge packet. I also provided education about the advair inhaler and medrol dose pack. he did not have any questions.
--- NOTE | 2020-05-08 14:24 | Occ Therapy Progress Note ---
Therapy Progress Note Per PT and pt, pt is up ad cheri in room and completes ADLs independently. Pt to discharge today. OT services discontinued. Pt met goals. BARBARA GARCIA May 08, 2020 14:24
--- NOTE | 2020-05-08 16:28 | NUR ---
MICKEY/MOSES update: MICKEY/MOSES has attempted to find patient a home health service. MICKEY[facility]MOSES [facility] MICKEY/MOSES called and faxed referral to [facility], [facility], [facility] who all denied. MICKEY/MOSES still has a referral to [facility] and awaiting acceptance/denial. MICKEY/MOSES spoke with patient's son Abebe at the possibility of outpatient physical therapy. He is agreeable with that if there is not a home health available. The patient has a son that is a physical therapist and will help out at home when needed. CM/SS will contact Abebe when home health is set up or if different arrangements need made.
--- NOTE | 2020-05-09 16:38 | NUR ---
MICKEY/MOSES update: MICKEY/MOSES received message that [facility] would not be accepting due to them not finding insurance coverage. MICKEY/MOSES contacted [facility] Member service line to check benefits for home health and outpatient physical therapy. The call reference number is [id number]. The customer solutions representative reports that the patient does have home health benefits for skilled PT, OT, Nursing service, and ST. She stated patient does have insurance coverage for outpatient Physical therapy. The patient has meet his out of pocket co-pay; therefore, his insurance will cover 80%. The patient has 100 visits approved. MICKEY/MOSES informed Crystal at [facility]. They are following up and will call this sw back. MICKEY/SS attempted to follow up. No answer at office. MICKEY/MOSES faxed with a note asking for a call back.
--- NOTE | 2020-05-10 10:21 | NUR ---
CM/SS update: CM/MOSES received call back from Rach at [facility]. She states they will admit patient to their service. Rach states she will contact patient's to inform them. CM/SS attempted to contact [facility] to give an update. No answer but a voice mail was left. No further needs at this time.
== END 2020-05-08 16:15 | disposition home or self-care (01) | DRG 177 ==
LOC: 4TH 13:04 → ICU 04-26 10:26 → 4TH 05-06 12:50
PROVIDERS: ADMIT Family Medicine; ATTEND Family Medicine
PROC: XW033E5 Introduction of Remdesivir Anti-infective into Peripheral Vein, Percutaneous Approach, New Technology Group 5 (ICD-10-PCS; principal; 2020-04-24)
PROC: XW13325 Transfusion of Convalescent Plasma (Nonautologous) into Peripheral Vein, Percutaneous Approach, New Technology Group 5 (ICD-10-PCS; 2020-04-24)
DX: U07.1 COVID-19 (principal); J96.01 Acute respiratory failure with hypoxia; J12.89 Other viral pneumonia; I26.99 Other pulmonary embolism without acute cor pulmonale
CPT/HCPCS: 36415; 36569; 36600; 71045; 76937; 80048; 80053; 80202; 81000; 82728; 82805; 83735; 83880; 84100; 84145; 85007; 85025; 85027; 85379; 85384; 85610; 85730; 86141; 86850; 86900; 86901; 87449; 87899; 93970; 94640; 94660; 94664; 94760; 94761